=== PATIENT | male | born 1965 | race Caucasian/White ===

== ENCOUNTER 2016-12-10 16:21 | Emergency (ER) | payer BC, OTHER ==
[~2016-12-10] VITALS: Ht 172.7 cm; Wt 93.9 kg
[~2016-12-10 16:21] MED LIST: ALL180 PO; ASC400 PO; CLX20 PO; DRV100 PO; DVN80 PO; FLNIN NAE; GLC5 PO; GLC500 PO; METO25TA56 PO; NAPR-1169 PO; PRLSR20 PO; RANI300T2 PO
[2016-12-10 16:25] VITALS: TEMP 36.9; Ht 172.7 cm; Wt 93.9 kg
[2016-12-10] MEDS ORDERED: OXYCODONE HCL IR 5 MG TAB (IMMEDIATE RELEASE) PO STA (16:46)
[2016-12-10] MEDS ORDERED: IBUPROFEN 600 MG TAB PO STA (16:46)
[2016-12-10] MEDS ORDERED: INSU1.2I SC (16:53)
[2016-12-10] MEDS ORDERED: VALS320T2 PO (16:53)
[2016-12-10] MEDS ORDERED: PRED20TA PO (16:53)
[2016-12-10] MEDS ORDERED: OMEP40CA PO (16:53)
--- NOTE | 2016-12-10 17:35 | DIAGNOSTIC IMAGING REPORT ---
RIGHT RIBS UNILATERAL WITH PA CHEST CLINICAL HISTORY: Right rib pain status post trauma COMPARISON STUDY: Chest x-ray dated 04/10/2015, rib series dated 12/16/2009 FINDINGS: The erect chest reveals postsurgical changes within the cervical spine. There is no focal pulmonary consolidation. There is no pneumothorax. There is a right 10th rib fracture which appears old. No acute fractures are visualized. IMPRESSION: 1. No evidence of pneumothorax 2. No evidence of focal pulmonary consolidation 3. Old right 10th rib fracture 4. No acute fractures are visualized. Electronically signed by: Chente Tran M.D. 12/10/2016 5:33 PM Dictated Date/Time: 12/10/2016 5:30 PM
--- NOTE | 2016-12-10 17:48 | EMERGENCY ROOM VISIT NOTE ---
ED Visit Note First contact with patient: 16:31 CHIEF COMPLAINT: Right rib injury 2 hours ago HISTORY OF PRESENT ILLNESS: Patient is a 51-year-old white male who presents the emergency department for evaluation of anterior and posterior right rib pain after a mechanical fall a couple of hours ago. He was at work and slipped on the floor of the barn, when he fell, he landed flat on his back, but his right back landed over a slightly raised edge on the floor. He describes feeling a popping sensation when he landed. He states that it knocked the wind out of him, and he had to lay there for a few moments until he could get up. He was able to get up and noted pain in the right back over the ribs. It is generally worse with movement. He is able to take a full deep breath and does not really report any significant pain with coughing or deep breathing. He denies feeling short of breath. No cough or hemoptysis. He has urinated since the incident and did not note any gross blood. He is now also beginning to experience some pressure in the right anterior ribs as well. He did not strike his head or lose consciousness. He rates his discomfort a 6/10. He did not take any medications prior to coming to the emergency department. He does report a remote history of right rib fractures. REVIEW OF SYSTEMS: Review of systems as per HPI. All other systems reviewed were negative. At least 6 systems reviewed. PMH: Electronic medical records are reviewed and summarized as above/below. See Problem List. SOCIAL HISTORY: Patient lives at home. . Employed. Former smoker. PHYSICAL EXAM: Vital Signs: Reviewed Nurse's notes. GENERAL : Patient is an uncomfortable-appearing 51-year-old white male who is awake and alert and seated in the chair at the bedside. Neck: The neck is supple and there is no pain to palpation over the posterior cervical spine and no obvious step-offs or deformities. There is no JVD or tracheal deviation. Chest: There are no signs of deformities, contusions or abrasions to the anterior or posterior chest wall. There is no obvious crepitus or paradoxical chest rise. He does have some reproducible tenderness to palpation in the posterior right ribs, as well as in the anterior inferior ribs in the midclavicular line. Heart: Regular rate, and regular rhythm. Lungs: Breath sounds equal and clear to auscultation without wheezes, rales, or rhonchi heard. Abdomen: Soft, completely nontender, nondistended, with good bowel sounds. There is no sign of trauma such as contusions, abrasions or penetrations. There are no palpable pulsatile masses or hepatosplenomegaly. There is no guarding, rigidity, or rebound noted. Back: The entire thoracic, lumbar, and sacral spine were palpated. No discomfort over the thoracic spine and lumbar spine. There are no obvious step- offs or deformities noted. There are no obvious signs of trauma such as contusions abrasions penetrations noted to the back. EMERGENCY DEPARTMENT COURSE: The patient was seen and evaluated as above. Urine sample was collected, dipped and negative for hematuria. He has reproducible anterior and posterior right rib pain. He has no hematuria to suspect renal injury or retroperitoneal bleed. He does not have any right upper quadrant pain to suspect solid organ injury. Patient was medicated with oxycodone and ibuprofen for discomfort. Chest and rib films were obtained and did not note any posttraumatic findings. Supportive care measures were discussed. Encouraged to perform deep breathing exercises. He has multiple prescriptions for pain medicine at home including hydrocodone, oxycodone and Tylenol with Codeine. Differential diagnoses included rib fracture, rib contusion, pulmonary contusion, pneumothorax, among others. The patient was discharged home with his driving. He rated his pain an 8/10 at discharge. RIGHT RIBS UNILATERAL WITH PA CHEST CLINICAL HISTORY: Right rib pain status post trauma COMPARISON STUDY: Chest x-ray dated 04/10/2015, rib series dated 12/16/2009 FINDINGS: The erect chest reveals postsurgical changes within the cervical spine. There is no focal pulmonary consolidation. There is no pneumothorax. There is a right 10th rib fracture which appears old. No acute fractures are visualized. IMPRESSION: 1. No evidence of pneumothorax 2. No evidence of focal pulmonary consolidation 3. Old right 10th rib fracture 4. No acute fractures are visualized. Problem List Medical Problems: (1) Diab Kandy Wo Compl, Type Ii Or Unspec Type, Not Uncntrld Status: Chronic (2) GERD (gastroesophageal reflux disease) Status: Chronic (3) Hypertension Nos Status: Chronic (4) Pure Hypercholesterolem Status: Chronic Surgical Problems: (1) S/p bilateral carpal tunnel release Status: Resolved (2) S/P cervical spinal fusion Status: Resolved (3) S/P rotator cuff repair Status: Resolved (4) S/P sinus surgery Status: Resolved Current/Historical Medications Scheduled Insulin Glargine (Toujeo Solostar), 70 UNITS SC BID Omeprazole (Prilosec), 40 MG PO DAILY Prednisone (Prednisone), 20 MG PO EVERY 3 DAYS Valsartan/Hctz (Diovan Hct 320MG/25MG), 1 TAB PO DAILY Allergies Coded Allergies: No Known Allergies (Unverified , 12/16/09) Vital Signs Date Time Temp Pulse Resp B/P Pulse Ox O2 Delivery O2 Flow Rate FiO2 12/10/16 17:55 91 16 125/89 99 12/10/16 16:25 36.9 98 20 127/89 97 Room Air Medications Administered Medications (Trade) Dose Ordered Sig/Will Route Start Time Stop Time Status Last Admin Dose Admin Ibuprofen (Motrin Tab) 600 mg NOW STAT PO 12/10/16 16:46 12/10/16 16:47 DC 12/10/16 16:58 600 MG Oxycodone HCl (Roxicodone Immediate Rel Tab) 10 mg NOW STAT PO 12/10/16 16:46 12/10/16 16:47 DC 12/10/16 16:58 10 MG Departure Information Impression Primary Impression: Rib pain on right side Additional Impressions: Fall Work related injury Referrals Ej Donnelly PA-C (PCP) Patient Instructions My [facility] Additional Instructions DO NOT drive, drink alcohol, operate machinery, or perform dangerous activities today. You were given medications in the ER that can affect your ability to safely function or operate a vehicle. Ibuprofen(Motrin, Advil) may be used for fever or pain. Use 600mg every six hours as needed. Take with food. Avoid using more than 2400mg in a 24 hour period. Do not use 2400mg per day for more than three consecutive days without physician direction. Prolonged inappropriate use can lead to stomach upset or ulcers. (AND/OR) Acetaminophen(Tylenol) may be used for fever or pain. Use 1000mg every six hours as needed. Avoid using more than 3000mg in a 24 hour period. Use your prescription pain medication at home as prescribed if needed for the pain. Apply ice to ribs for swelling and pain. Do deep breathing and coughing exercises as instructed. Limit activities until ribs heal. Follow-up with your workers compensation physician if you do not feel the your symptoms are improving in the next 7-10 days. Problem Qualifiers Additional Impressions: Fall Encounter type: initial encounter Qualified Codes: W19.XXXA - Unspecified fall, initial encounter
[2016-12-10 17:55] VITALS: BP 125/89; PULSE 91; O2SAT 99
== END 2016-12-10 17:56 | disposition home or self-care (01) ==
LOC: C.EDB 16:22 → C.EDD 17:56
DX: R07.81 Pleurodynia (principal); W01.0XXA Fall on same level from slipping, tripping and stumbling without subsequent striking against object, initial encounter; Y99.0 Civilian activity done for income or pay; Z87.891 Personal history of nicotine dependence; E11.9 Type 2 diabetes mellitus without complications; K21.9 Gastro-esophageal reflux disease without esophagitis; I10 Essential (primary) hypertension; E78.00 Pure hypercholesterolemia, unspecified

== ENCOUNTER 2017-10-13 07:37 | Emergency (ER) | payer BC, OTHER ==
[~2017-10-13] VITALS: Ht 172.7 cm; Wt 97.6 kg
[~2017-10-13 07:37] MED LIST changes: -ALL180 PO; -ASC400 PO; -CLX20 PO; -DRV100 PO; -DVN80 PO; -FLNIN NAE; -GLC5 PO; -GLC500 PO; +INSU1.2I SC; -METO25TA56 PO; -NAPR-1169 PO; +OMEP40CA PO; +PRED20TA PO; -PRLSR20 PO; -RANI300T2 PO; +VALS320T2 PO
[2017-10-13 07:42] VITALS: TEMP 37; Ht 172.7 cm; Wt 97.6 kg
[2017-10-13 07:52] VITALS: O2SAT 93
[2017-10-13 08:09] LABS: BASO % 0.4 %; BASO ABS # 0.02 K/uL (0-0.2); COMPLETE YES; EOS % 6.4 %; IG% 0.4 %; LYMPH % 31.7 %; LYMPH ABS # 1.44 K/uL (1.2-3.4); MEAN CELL VOLUME 88.2 fL (80-100); MEAN CORPUSCULAR HEMOGLOBIN 32.4 pg (25-34); MEAN CORPUSCULAR HGB CONC 36.7 g/dl (32-36); MEAN PLATELET VOLUME 10.1 fL (7.4-10.4); MONO % 7.7 %; NEUT % 53.4 %; PLATELET COUNT 159 K/uL (130-400); WHITE BLOOD COUNT 4.54 K/uL (4.8-10.8)
[2017-10-13] MEDS ORDERED: MAGN400T6 PO ×2 (08:14)
[2017-10-13] MEDS ORDERED: CZR50 PO (08:14)
[2017-10-13] MEDS ORDERED: NEBI10TA2 PO (08:14)
[2017-10-13 08:21] LABS: ALT/SGPT 83 U/L (12-78); BLOOD UREA NITROGEN 17 mg/dl (7-18); BUN/CREATININE RATIO 14.7 (10-20); CALCIUM 9.4 mg/dl (8.5-10.1); CARBON DIOXIDE 27 mmol/L (21-32); CHLORIDE 103 mmol/L (98-107); CREATININE 1.14 mg/dl (0.60-1.40); GLUCOSE 209 mg/dl (70-99); POTASSIUM 3.7 mmol/L (3.5-5.1); SODIUM 138 mmol/L (136-145)
--- NOTE | 2017-10-13 08:25 | DIAGNOSTIC IMAGING REPORT ---
CT OF THE HEAD WITHOUT CONTRAST CLINICAL HISTORY: Sinusitis. Hypertension. COMPARISON STUDY: No previous studies for comparison. CT DOSE: 537.48 mGy.cm TECHNIQUE: Helical axial images of the head were obtained without IV contrast. Automated exposure control was utilized for the study. A dose lowering technique was utilized adhering to the principles of ALARA. FINDINGS: No acute intracranial hemorrhage, midline shift or mass effect is present. Ventricular system is unremarkable. Basilar cisterns are patent. There are no extra-axial collections. Garcia-white differentiation is maintained. There are no findings to suggest acute dural sinus thrombosis or acute territorial infarct. Mastoid air cells are clear. Extensive mucosal thickening is noted within visualized portions of the ethmoid sinuses. There is mild mucosal thickening within the sphenoid sinuses. Frontal sinuses demonstrate minimal mucosal thickening. Maxillary sinuses are not imaged on this exam. IMPRESSION: 1. No acute intracranial findings. 2. Extensive mucosal thickening within visualized portions of the ethmoid sinuses with mild mucosal thickening of the sphenoid sinuses. Maxillary sinuses not imaged on this exam. Electronically signed by: Tien Simental M.D. 10/13/2017 8:23 AM Dictated Date/Time: 10/13/2017 8:20 AM
--- NOTE | 2017-10-13 08:27 | DIAGNOSTIC IMAGING REPORT ---
CHEST ONE VIEW PORTABLE CLINICAL HISTORY: Severe hypertension. COMPARISON STUDY: Chest radiograph and right rib series December 10, 2016. FINDINGS: No pneumothorax or pleural effusion is present. A 1.9 cm nodular density within the mid to lower right lung is noted. Cardiomediastinal silhouette is normal. Pulmonary vascularity is normal. IMPRESSION: 1. No acute cardiopulmonary findings. 2. 1.9 cm nodular density within the mid to lower right lung. This likely reflects summation artifact with pulmonary vessels and ribs. Follow-up PA and shallow oblique radiographs of the chest are recommended. Electronically signed by: Tien Simental M.D. 10/13/2017 8:26 AM Dictated Date/Time: 10/13/2017 8:23 AM
[2017-10-13 08:32] LABS: ALKALINE PHOSPHATASE 77 U/L (45-117); AST/SGOT 38 U/L (15-37); CKMB/CK RATIO 2.2 (0-3.0)
[2017-10-13] MEDS ORDERED: SODIUM CHLORIDE 0.9% 500ML 500 ML IV STA (08:37)
--- NOTE | 2017-10-13 08:39 | EMERGENCY ROOM VISIT NOTE ---
History Report prepared by Sarah: Sun Gonzáles Under the Supervision of: Dr. Harry Salgado M.D. First contact with patient: 07:48 Chief Complaint: HYPERTENSION Stated Complaint: ELEVATED BP History of Present Illness The patient is a 52 year old male who presents to the Emergency Room with complaints of persistent high blood pressure for the past three days. He states that his blood pressure has been acting up for the last three days, expressing that it has been about 170/100 for three days. 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 He takes daily Diovan for his hypertension and states he took it this morning about 3 hours PIPELINE OPERATOR. He reports taking Meloxicam for plantar fascitis for about a month. He notes stopping the medication 4 days ago. Patient feels pressure and "spacey" in his head along with sinus congestion and mucus discharge. He denies recent cardiac problems, blood thinners, and abdominal pain. He denies taking any medication for the sinus congestion. He has been on a high salt diet due to the . Source of History: patient Onset: 3 days PIPELINE OPERATOR Position: other (global) Timing: other (persistent) Associated Symptoms: + headache, No abdominal pain Review of Systems See HPI for pertinent positives & negatives. A total of 10 systems reviewed and were otherwise negative. Past Medical & Surgical Medical Problems: (1) Diab Kandy Wo Compl, Type Ii Or Unspec Type, Not Uncntrld (2) GERD (gastroesophageal reflux disease) (3) Hypertension Nos (4) Pure Hypercholesterolem Surgical Problems: (1) S/p bilateral carpal tunnel release (2) S/P cervical spinal fusion (3) S/P rotator cuff repair (4) S/P sinus surgery Social History Smoking Status: Never Smoker Current/Historical Medications Scheduled Amoxicillin & Pot Clavulanate (Augmentin 875-125 mg), 1 TAB PO BID Insulin Glargine (Toujeo Solostar), 70 UNITS SC BID Losartan Potassium (Losartan Potassium), 100 MG PO DAILY Magnesium Oxide (Mag-Ox), 800 MG PO QAM Magnesium Oxide (Mag-Ox), 400 MG PO QPM Nebivolol Hcl (Bystolic), 10 MG PO QAM Omeprazole (Prilosec), 40 MG PO DAILY Allergies Coded Allergies: No Known Allergies (Unverified , 1/28/10) Physical Exam Vital Signs Date Time Temp Pulse Resp B/P (MAP) Pulse Ox O2 Delivery O2 Flow Rate FiO2 10/13/17 10:30 67 18 141/96 98 Room Air 10/13/17 09:35 65 18 170/102 98 Room Air 10/13/17 09:30 80 16 202/108 98 Room Air 10/13/17 08:30 66 18 142/93 95 Room Air 10/13/17 08:20 68 18 176/107 98 Room Air 10/13/17 07:54 85 10/13/17 07:52 93 Room Air 10/13/17 07:42 37.0 82 18 186/112 93 Room Air Physical Exam GENERAL: Patient is a healthy-appearing well-nourished 52 year old male. HEAD: Normocephalic atraumatic EYES: Ocular movements intact pupils equal and react to light OROPHARYNX mucous membranes are moist no exudates present no erythema or edema present NECK: Supple no nuchal rigidity CHEST: Good equal expansion LUNGS: Clear and equal to auscultation CARDIAC: Normal S1 and S2 ABDOMEN: Soft nontender no guarding BACK: No CVA tenderness EXTREMITIES: No pain upon palpation normal muscle strength in all groups no clubbing cyanosis or edema NEURO: Patient is following commands and answering questions appropriately. Alert and oriented x3 Cranial Nerves 2-12 grossly intact Medical Decision & Procedures ER Provider Diagnostic Interpretation: Radiology results as stated below per my review and radiologist interpretation: CHEST-PA,LAT AND OBLIQUE VIEWS CLINICAL HISTORY: Abnormal portable chest radiograph. COMPARISON STUDY: Chest radiograph August 11, 2015 and October 13, 2017. FINDINGS: No lung nodules are identified by radiography. The possible right lung nodule shown on prior exam performed earlier today was artifactual and related to summation artifact. Cardiomediastinal silhouette is normal. Pulmonary vascularity is normal. IMPRESSION: No pulmonary nodules identified. The possible right lung nodule prior exam was artifactual. Electronically signed by: Tien Simental M.D. 10/13/2017 9:26 AM CHEST ONE VIEW PORTABLE CLINICAL HISTORY: Severe hypertension. COMPARISON STUDY: Chest radiograph and right rib series December 10, 2016. FINDINGS: No pneumothorax or pleural effusion is present. A 1.9 cm nodular density within the mid to lower right lung is noted. Cardiomediastinal silhouette is normal. Pulmonary vascularity is normal. IMPRESSION: 1. No acute cardiopulmonary findings. 2. 1.9 cm nodular density within the mid to lower right lung. This likely reflects summation artifact with pulmonary vessels and ribs. Follow-up PA and shallow oblique radiographs of the chest are recommended. Electronically signed by: Tien Simental M.D. 10/13/2017 8:[address] OF THE HEAD WITHOUT CONTRAST CLINICAL HISTORY: Sinusitis. Hypertension. COMPARISON STUDY: No previous studies for comparison. CT DOSE: 537.48 mGy.cm TECHNIQUE: Helical axial images of the head were obtained without IV contrast. Automated exposure control was utilized for the study. A dose lowering technique was utilized adhering to the principles of ALARA. FINDINGS: No acute intracranial hemorrhage, midline shift or mass effect is present. Ventricular system is unremarkable. Basilar cisterns are patent. There are no extra-axial collections. Garcia-white differentiation is maintained. There are no findings to suggest acute dural sinus thrombosis or acute territorial infarct. Mastoid air cells are clear. Extensive mucosal thickening is noted within visualized portions of the ethmoid sinuses. There is mild mucosal thickening within the sphenoid sinuses. Frontal sinuses demonstrate minimal mucosal thickening. Maxillary sinuses are not imaged on this exam. IMPRESSION: 1. No acute intracranial findings. 2. Extensive mucosal thickening within visualized portions of the ethmoid sinuses with mild mucosal thickening of the sphenoid sinuses. Maxillary sinuses not imaged on this exam. Electronically signed by: Tien Simental M.D. 10/13/2017 8:23 AM Laboratory Results 10/13/17 07:54 Red Blood Count 5.10, Mean Corpuscular Volume 88.2, Mean Corpuscular Hemoglobin 32.4, Mean Corpuscular Hemoglobin Concent 36.7, Mean Platelet Volume 10.1, Neutrophils (%) (Auto) 53.4, Lymphocytes (%) (Auto) 31.7, Monocytes (%) (Auto) 7.7, Eosinophils (%) (Auto) 6.4, Basophils (%) (Auto) 0.4, Neutrophils # (Auto) 2.42, Lymphocytes # (Auto) 1.44, Monocytes # (Auto) 0.35, Eosinophils # (Auto) 0.29, Basophils # (Auto) 0.02 10/13/17 07:54 Test 10/13/17 07:54 10/13/17 08:30 White Blood Count 4.54 K/uL (4.8-10.8) Red Blood Count 5.10 M/uL (4.7-6.1) Hemoglobin 16.5 g/dL (14.0-18.0) Hematocrit 45.0 % (42-52) Mean Corpuscular Volume 88.2 fL (80-100) Mean Corpuscular Hemoglobin 32.4 pg (25-34) Mean Corpuscular Hemoglobin Concent 36.7 g/dl (32-36) Platelet Count 159 K/uL (130-400) Mean Platelet Volume 10.1 fL (7.4-10.4) Neutrophils (%) (Auto) 53.4 % Lymphocytes (%) (Auto) 31.7 % Monocytes (%) (Auto) 7.7 % Eosinophils (%) (Auto) 6.4 % Basophils (%) (Auto) 0.4 % Neutrophils # (Auto) 2.42 K/uL (1.4-6.5) Lymphocytes # (Auto) 1.44 K/uL (1.2-3.4) Monocytes # (Auto) 0.35 K/uL (0.11-0.59) Eosinophils # (Auto) 0.29 K/uL (0-0.5) Basophils # (Auto) 0.02 K/uL (0-0.2) RDW Standard Deviation 40.6 fL (36.4-46.3) RDW Coefficient of Variation 12.7 % (11.5-14.5) Immature Granulocyte % (Auto) 0.4 % Immature Granulocyte # (Auto) 0.02 K/uL (0.00-0.02) Prothrombin Time 11.0 SECONDS (9.0-12.0) Prothromb Time International Ratio 1.0 (0.9-1.1) Activated Partial Thromboplast Time 26.8 SECONDS (21.0-31.0) Partial Thromboplastin Ratio 1.0 Anion Gap 8.0 mmol/L (3-11) Est Creatinine Clear Calc Drug Dose 83.9 ml/min Estimated GFR () 84.0 Estimated GFR (Non- 72.5 BUN/Creatinine Ratio 14.7 (10-20) Calcium Level 9.4 mg/dl (8.5-10.1) Total Bilirubin 0.7 mg/dl (0.2-1) Direct Bilirubin 0.2 mg/dl (0-0.2) Aspartate Amino Transf (AST/SGOT) 38 U/L (15-37) Alanine Aminotransferase (ALT/SGPT) 83 U/L (12-78) Alkaline Phosphatase 77 U/L (45-117) Total Creatine Kinase 512 U/L (39-308) Creatine Kinase MB 11.2 ng/ml (0.5-3.6) Creatine Kinase MB Ratio 2.2 (0-3.0) Troponin I < 0.015 ng/ml (0-0.045) Total Protein 8.1 gm/dl (6.4-8.2) Albumin 4.3 gm/dl (3.4-5.0) Lipase 206 U/L (73-393) Thyroid Stimulating Hormone (TSH) 5.230 uIu/ml (0.300-4.500) Free Thyroxine 1.00 ng/dl (0.80-1.60) Urine Color YELLOW Urine Appearance CLEAR (CLEAR) Urine pH 6.0 (4.5-7.5) Urine Specific [place] 1.017 (1.000-1.030) Urine Protein 2+ (NEG) Urine Glucose (UA) TRACE (NEG) Urine Ketones NEG (NEG) Urine Occult Blood NEG (NEG) Urine Nitrite NEG (NEG) Urine Bilirubin NEG (NEG) Urine Urobilinogen NEG (NEG) Urine Leukocyte Esterase NEG (NEG) Urine WBC (Auto) 1-5 /hpf (0-5) Urine RBC (Auto) 0-4 /hpf (0-4) Urine Hyaline Casts (Auto) 0 /lpf (0-5) Urine Epithelial Cells (Auto) 5-10 /lpf (0-5) Urine Bacteria (Auto) NEG (NEG) Labs reviewed by ED physician. Medications Administered Medications (Trade) Dose Ordered Sig/Will Route Start Time Stop Time Status Last Admin Dose Admin Sodium Chloride 500 ml @ 999 mls/hr Q31M STAT IV 10/13/17 08:37 10/13/17 09:07 DC 10/13/17 08:45 999 MLS/HR Amoxicillin/ Clavulanate Potassium (Augmentin Tab) 875 mg ONE ONCE PO 10/13/17 08:45 10/13/17 08:46 DC 10/13/17 09:27 875 MG Sodium Chloride ([place] Nasal [place]) 2 sprays NOW STAT NA 10/13/17 08:40 10/13/17 08:41 DC 10/13/17 09:27 2 SPRAYS Potassium Chloride (Marjorie Ciel Elix) 30 meq NOW STAT PO 10/13/17 09:09 10/13/17 09:10 DC 10/13/17 09:27 30 MEQ ECG Indication: other (HTN) Rate (beats per minute): 79 Rhythm: sinus rhythm Findings: PVC (Occasional), no acute ischemic change ED Course 0748: Past medical records reviewed. The patient was evaluated in room A3. A complete history and physical examination was performed. 0837: Sodium Chloride 500 mL IV 0840: [place] Nasal [place] 2 sprays NA 0845: Amoxicillin 875 mg PO 0909: Potassium Chloride 30 meq PO 0858: I reassessed the patient at this time. He is feeling better and resting comfortably. 0950: I reevaluated the patient. He is feeling well and resting comfortably. I discussed his results and discharge instructions and he verbalized complete understanding and agreement. Medical Decision Prior records/ancillary studies reviewed regarding the history above. Triage Nursing notes reviewed. The patient's history was concerning for hypertension. Differential diagnosis: Etiologies such as benign hypertension, hypertensive emergency, cardiovascular pathology, pheochromocytoma, electrolyte abnormality, renal disease, organ damage, as well as others were entertained. This is a 52-year-old male who presents emergency department complaining of sinusitis-like symptoms as well as an elevation in his blood pressure. I will note that the patient's blood pressure fell without me doing anything. He was started on Augmentin for sinusitis and given nasal sprays. I suspect that the patient has several factors playing into his blood pressure 1 being anxiety 2 being his sinusitis, 3 being his hypokalemia. Regardless the blood pressure fell without any intervention. Based on these findings I felt that the patient can be safely discharged home for follow-up with his primary care physician. I will place him on antibiotics. Patient was in agreement with the treatment plan. Medication Reconcilliation Current Medication List: was personally reviewed by me Blood Pressure Screening Patient's blood pressure: Elevated blood pressure Blood pressure disposition: Referred to PCP Impression Primary Impression: Hypertension Additional Impression: Sinusitis Scribe Attestation The scribe's documentation has been prepared under my direction and personally reviewed by me in its entirety. I confirm that the note above accurately reflects all work, treatment, procedures, and medical decision making performed by me. Departure Information Dispostion Home / Self-Care Prescriptions Amoxicillin & Pot Clavulanate (Augmentin 875-125 mg) 1 Tab Tab 1 TAB PO BID for 10 Days, #20 TAB Prov: Harry Salgado MD 10/13/17 Referrals Ej Donnelly PA-C (PCP) Patient Instructions ED Sinusitis Abx Tx, Hypertension Control, Hypertension Dc, My [facility], Sinusitis Acute, Sinusitis Causes, Sinusitis Prevent, Sinusitis Self Care Additional Instructions Follow up with Dr Fischer's office for sinusitis You were found to have an elevated blood pressure today (>120 sytolic or >90 diastolic). Per medicare guidelines, you need to follow up with this blood pressure screening with your Primary Care Physician (PCP). For a new PCP call [phone]. You have been examined and treated today on an emergency basis only. This is not a substitute for, or an effort to provide, complete comprehensive medical care. It is impossible to recognize and treat all injuries or illnesses in a single emergency department visit. It is therefore important that you follow up closely with Dr Donnelly. Call as soon as possible for an appointment. Thank you for your time and consideration. I look forward to speaking with you again soon. Please don't hesitate to call us if you have any questions. Problem Qualifiers Primary Impression: Hypertension Hypertension type: unspecified Qualified Codes: I10 - Essential (primary) hypertension Additional Impression: Sinusitis Sinusitis location: unspecified location Chronicity: unspecified Qualified Codes: J32.9 - Chronic sinusitis, unspecified
[2017-10-13] MEDS ORDERED: SODIUM CHLORIDE 0.65% NA SOLN 45 ML (OCEAN) STA (08:40)
[2017-10-13 08:45] LABS: URINE APPEARANCE CLEAR (CLEAR); URINE BILIRUBIN NEG (NEG); URINE COLOR YELLOW; URINE NITRITE NEG (NEG); URINE SPECIFIC GRAVITY 1.017 (1.000-1.030); UROBILINOGEN NEG (NEG)
[2017-10-13] MEDS ORDERED: AMOXICILLIN/CLAVULANATE TAB 875 MG TAB PO ONE (08:45)
[2017-10-13 08:49] LABS: MANUAL MICROSCOPIC REQUIRED? NO; REVIEW REQ? NO
[2017-10-13] MEDS ORDERED: POTASSIUM CHLORIDE 20 MEQ/15 ML UDC PO STA (09:09)
--- NOTE | 2017-10-13 09:27 | DIAGNOSTIC IMAGING REPORT ---
CHEST-PA,LAT AND OBLIQUE VIEWS CLINICAL HISTORY: Abnormal portable chest radiograph. COMPARISON STUDY: Chest radiograph August 11, 2015 and October 13, 2017. FINDINGS: No lung nodules are identified by radiography. The possible right lung nodule shown on prior exam performed earlier today was artifactual and related to summation artifact. Cardiomediastinal silhouette is normal. Pulmonary vascularity is normal. IMPRESSION: No pulmonary nodules identified. The possible right lung nodule prior exam was artifactual. Electronically signed by: Tien Simental M.D. 10/13/2017 9:26 AM Dictated Date/Time: 10/13/2017 9:25 AM
[2017-10-13] MEDS ORDERED: AMOX875T PO (10:02)
[2017-10-13 10:30] VITALS: BP 141/96; PULSE 67; O2SAT 98
== END 2017-10-13 10:49 | disposition home or self-care (01) ==
LOC: C.EDB 07:38 → C.EDA 10:49
DX: I10 Essential (primary) hypertension (principal); J32.9 Chronic sinusitis, unspecified; E11.9 Type 2 diabetes mellitus without complications; K21.9 Gastro-esophageal reflux disease without esophagitis; Z98.1 Arthrodesis status; Z98.890 Other specified postprocedural states; Z79.4 Long term (current) use of insulin; Z79.899 Other long term (current) drug therapy

== ENCOUNTER 2020-04-23 14:48 | Inpatient (IN) ==
--- NOTE | 2020-04-23 16:04 | Emergency Department Note ---
Impression & Plan Cellulitis ED Provider Note NAME: JENNIFER JOSEPH AGE: 55 SEX: M ARRIVES VIA: Walk-In INFORMANT: [Patient] ED PROVIDER(S): Camilo Gonzalez MD CHIEF COMPLAINT: Arm infection PLAN: Disposition: Admitted Condition: [Good] MEDICAL DECISION MAKING: The patient presented to the emergency department with worsening right arm infection. He has been on maximal outpatient antibiotic therapy. He had some fluctuance in the area of the right olecranon bursa. I did aspirate this for a culture. About 10 cc of cloudy fluid was obtained. The patient has most of his right arm involved. I do not suspect necrotizing fasciitis. The patient has no pain. There is no joint related issues to support just a septic joint. He was given daptomycin and IV Zosyn. Given his diabetes and significant worsening of the infection he needs to be treated in the hospital. He does have a leukocytosis on CBC. His chemistry panel was unremarkable. I discussed the case with Dr. Rodriguez of internal medicine. The patient was evaluated in the ER and admitted for further treatment. Triage Nursing notes reviewed and agree them. Vital Signs: reviewed and remarkable for [no significant abnormalities] Differential diagnosis: Etiologies such as septic bursitis, cellulitis, abscess, MRSA infection, dermatitis, drug eruption, necrotizing fasciitis, DVT as well as others were entertained. ER treatment provided: Zosyn Daptomycin Diagnostics interpreted by me: Laboratory studies: Leukocytosis on CBC. As above. Deferred imaging. Consultation(s): Internal medicine HPI: The patient is a 55 year old ute who presents to the Emergency Room with complaints of right arm infection. This started 4 days ago and is worsening. The patient also notes the following associated symptoms, redness, swelling, fevers. The patient saw his PCP on the second day and started on antibiotics, bactrim and given rocephin IM. Yesterday he had his elbow I&D'd and placed on augmentin. Was also given rocephin again. Saw PCP today due to significant increased swelling and was directed to the ER for antibiotics. Pt denies LOC, headache, diaphoresis, visual changes, neck pain, chest pain, breathing difficulties, nausea, vomiting, abdominal pain, back pain, diarrhea, numbness, weakness, lymphadenopathy, or other complaints. ROS: See above HPI for pertinent positives & negatives. A total of [10] systems reviewed and were otherwise negative. PAST MEDICAL HISTORY:[See Below] DM PAST SURGICAL HISTORY:[See Below] FAMILY HISTORY:[See Below] SOCIAL HISTORY:[See Below]No tobacco or ETOH HOME MEDICATIONS:[See Below] ALLERGIES:[See Below] VITALS:[See Below] PHYSICAL EXAMINATION: GENERAL: Awake, alert, well-appearing, in no distress HENT: Normocephalic, atraumatic. Oropharynx unremarkable. EYES: Normal conjunctiva. Sclera non-icteric. NECK: Inspection normal. Non-tender. Supple. No nuchal rigidity. FROM. No masses. RESPIRATORY: Clear to auscultation. No wheezes. No rales. Normal respiratory effort. CARDIAC: Normal rate. Normal rhythm. No murmurs. No rubs. Extremities warm and well perfused. Pulses equal. No JVD. GI: Soft, non-distended. No tenderness to palpation. No rebound or guarding. No masses. RECTAL: Deferred. MUSCULOSKELETAL:Swelling and edema to mid bicep distally into right hand. Draining wound on the right elbow. No definite joint warmth or erythema. NEURO: Normal sensorium. No sensory or motor deficits noted. SKIN: Right arm cellulitis as noted in MS section. No other rash or jaundice noted. ED COURSE: [Critical Care:] [None] Camilo Gonzalez MD Past Med/Surg History Medical History Allergic rhinitis Diabetes mellitus type 2, uncontrolled GERD (gastroesophageal reflux disease) HTN (hypertension), benign Hyperlipidemia Osteoarthritis Surgical History History of bone marrow biopsy History of fusion of cervical spine History of sinus surgery Family History Other Family history non-contributory Social History Preferred Language: Kazakh Communication Ability: Effective Voip Network Engineer Required: No Beliefs That Will Affect Care: None marital status: Current Living Situation: Spouse current occupational status: employed current occupation: Works as a cow breeder Feels Safe at Home: Yes Safety Concerns: Feels Safe At This Time Smoking Status: Former smoker Age Quit Using Tobacco: 25 ; Hx Alcohol Use: No Hx Substance Use: No Allergies Allergies Allergy/AdvReac Type Severity Reaction Status Date / Time No Known Allergies Unverified 04/23/20 16:21 Home Meds Home Medications Medication Instructions Recorded Confirmed amoxicillin-pot clavulanate 1 tab PO BID 04/23/20 04/23/20 aspirin [Aspirin Low Dose] 81 mg PO DAILY 04/23/20 04/23/20 atorvastatin 20 mg PO PM 04/23/20 04/23/20 cetirizine [Zyrtec] 10 mg PO DAILY 04/23/20 04/23/20 fluticasone propionate [Flonase 1 spray INTRANASAL BID 04/23/20 04/23/20 Allergy Relief] ibuprofen 800 mg PO BID 04/23/20 04/23/20 insulin glargine [Basaglar KwikPen 80 unit SUBCUT BID 04/23/20 04/23/20 U-100 Insulin] losartan 100 mg PO DAILY 04/23/20 04/23/20 omeprazole 40 mg PO DAILY 04/23/20 04/23/20 sulfamethoxazole-trimethoprim 1 tab PO BID 04/23/20 04/23/20 triamterene-hydrochlorothiazid 1 cap PO DAILY 04/23/20 04/23/20 [Dyazide] Results & Data (ED) Vital Signs Vital Signs - 24 hr 04/23/20 15:01 04/23/20 16:50 04/23/20 18:00 Temperature 36.7 C Temperature Source Oral Pulse Rate 79 Pulse Rate [Radial] 87 81 Pulse Rhythm Regular Pulse Rhythm [Radial] Regular Regular Pulse Strength Normal Pulse Strength [Radial] Normal Normal Respiratory Rate 16 18 16 Respiratory Effort / Characteristics Non-Labored Spontaneous Non-Labored Spontaneous Non-Labored Spontaneous Respiratory Depth Normal Normal Normal Respiratory Pattern Regular Regular Regular Blood Pressure 137/88 Blood Pressure [Left Arm] 138/94 145/71 H Blood Pressure Mean 104 Blood Pressure Mean [Left Arm] 108 95 Blood Pressure Position Sitting Pulse Oximetry 98 97 97 Oxygen Delivery Method Room Air Room Air Room Air Sepsis Recent Fever Within 48 Hours Yes Sepsis New/Unexplained Change in Mental Status No Sepsis Action Taken by Nursing No Action Required Laboratory Data Result diagrams: 04/23/20 16:30 04/23/20 16:30 Lab Results 06/05/20 06/05/20 Range/Units 16:30 16:30 WBC 11.67 H (4.8-10.8) K/uL RBC 4.62 L (4.7-6.1) M/uL Hgb 14.5 (14.0-18.0) g/dL Hct 41.1 L (42-52) % MCV 89.0 (80-100) fL MCH 31.4 (25-34) pg MCHC 35.3 (32-36) g/dL RDW Std Deviation 42.1 (36.4-46.3) fL RDW Coeff of Rosario 13.1 (11.5-14.5) % Plt Count 173 (130-400) K/uL MPV 10.4 (7.4-10.4) fL Immature Gran % (Auto) 0.3 % Neut % (Auto) 73.9 % Lymph % (Auto) 16.8 % Stephens % (Auto) 7.4 % Eos % (Auto) 1.5 % Baso % (Auto) 0.1 % Immature Gran # (Auto) 0.04 H (0.00-0.02) K/uL Neut # (Auto) 8.63 H (1.4-6.5) K/uL Lymph # (Auto) 1.96 (1.2-3.4) K/uL Stephens # (Auto) 0.86 H (0.11-0.59) K/uL Eos # (Auto) 0.17 (0-0.5) K/uL Baso # (Auto) 0.01 (0-0.2) K/uL Sodium 137 (136-145) mmol/L Potassium 3.6 (3.5-5.1) mmol/L Chloride 104 (98-107) mmol/L Carbon Dioxide 27 (21-32) mmol/L Anion Gap 6.0 (3-11) BUN 32 H (7-18) mg/dl Creatinine 1.61 H (0.6-1.4) mg/dl Est Cr Clr Drug Dosing 56.6 ml/min Est GFR ( Amer) 54.2 Est GFR (Non-Af Amer) 46.8 BUN/Creatinine Ratio 19.8 (10-20) Glucose 145 H (70-99) mg/dl Calcium 9.1 (8.5-10.1) mg/dl Administered Medications Fluticasone Propionate (Flonase) 1 sprays JOVANNI BID [facility], 1928–1983 Stop: 05/23/20 20:59 Last Admin: 04/23/20 22:02 Dose: 1 sprays Documented by: [id number] Piperacillin Sod/Tazobactam (Sod 3.375 gm/ Dextrose) 115 mls @ 28.75 mls/hr IV Q8H [facility], 1928–1983; Protocol Stop: 04/30/20 21:59 Last Admin: 04/23/20 22:02 Dose: 28.8 mls/hr Documented by: [id number] Sodium Chloride (Nss 1000ml) 1,000 mls @ 80 mls/hr IV .[id number] ABDIAZIZ Stop: 05/23/20 22:14 Last Admin: 04/23/20 22:32 Dose: 80 mls/hr Documented by: [id number] Insulin Aspart (Novolog Flexpen) 0 units SC Q6 ABDIAZIZ Stop: 05/23/20 21:59 Last Admin: 04/23/20 21:49 Dose: Not Given Documented by: [id number] Cosigned by: [id number] Discontinued Medications Daptomycin 275 mg/ Syringe 5.5 mls @ 2.75 mls/min IV NOW ONE; Protocol Stop: 04/23/20 16:16 Last Admin: 04/23/20 17:27 Dose: 2.75 mls/min Documented by: [id number] Piperacillin Sod/Tazobactam Sod (Zosyn) 4.5 gm in 120 mls @ 240 mls/hr IV NOW ONE Stop: 04/23/20 16:44 Last Infusion: 04/23/20 17:25 Dose: 0 mls/hr Documented by: [id number] Admin: 04/23/20 16:50 Dose: 240 mls/hr Documented by: [id number] Sodium Chloride (Nss 1000ml) 1,000 mls @ 125 mls/hr IV .Q8H STA Stop: 04/24/20 01:38 Last Infusion: 04/23/20 22:26 Dose: 0 mls/hr Documented by: [id number] Admin: 04/23/20 19:24 Dose: 125 mls/hr Documented by: [id number] Insulin Glargine (Lantus) 80 units SC ONE STA Stop: 04/23/20 22:26 Last Admin: 04/23/20 22:40 Dose: 80 units Documented by: [id number] Cosigned by: [id number] Discharge Plan Visit Data *Final* Discharge Date/Time: 04/23/20 19:56 Chief Complaint: Swelling/Edema to Extremity Stated Complaint: SWELLING IN R ARM ED Provider: Camilo Gonzalez Discharge Problem: Cellulitis Patient Disposition: Admitted As Inpatient Discharge Instructions Interventions: ED Discharge Assessment Last Done: 04/23/20 19:56
[2020-04-23] MEDS ORDERED: PIPERACILL/TAZOBAC CONSULT ACTIVE PRN ×2 (16:15→20:19)
[2020-04-23] MEDS ORDERED: PIPERACILLIN/TAZOBACTAM 4.5 GM/120 ML BAG IV ONE (16:15)
[2020-04-23] MEDS ORDERED: DAPTOMYCIN CONSULT ACTIVE PRN ×2 (16:15→20:19)
[2020-04-23] MEDS ORDERED: DAPTOmycin 275 MG in SYRINGE 0 ML IV ONE (16:15)
[2020-04-23 16:57] LABS: Basophils # (auto) 0.01 K/uL (0-0.2); Basophils % (auto) 0.1 %; Eosinophils # (auto) 0.17 K/uL (0-0.5); Eosinophils % (auto) 1.5 %; Hematocrit (blood only) 41.1 % (42-52); Hemoglobin 14.5 g/dL (14.0-18.0); Immature Granulocytes # (auto) 0.04 K/uL (0.00-0.02); Immature Granulocytes % (auto) 0.3 %; Lymphocytes # (auto) 1.96 K/uL (1.2-3.4); Lymphocytes % (auto) 16.8 %; Mean Corpuscular Hemoglobin 31.4 pg (25-34); Mean Corpuscular Hgb Conc 35.3 g/dL (32-36); Mean Platelet Volume 10.4 fL (7.4-10.4); Monocytes # (auto) 0.86 K/uL (0.11-0.59); Monocytes % (auto) 7.4 %; Neutrophils # (auto) 8.63 K/uL (1.4-6.5); Neutrophils % (auto) 73.9 %; Platelet Count 173 K/uL (130-400); RDW Coefficient of Variation 13.1 % (11.5-14.5); RDW Standard Deviation 42.1 fL (36.4-46.3); Red Blood Count 4.62 M/uL (4.7-6.1); White Blood Count 11.67 K/uL (4.8-10.8)
[2020-04-23 17:18] LABS: BUN Creatinine Ratio 19.8 (10-20); Calcium 9.1 mg/dl (8.5-10.1); Creatinine Clr Calc Pharmacy 56.6 ml/min; Est GFR (African American) 54.2; Est GFR (Non-African American) 46.8; Potassium 3.6 mmol/L (3.5-5.1)
[2020-04-23] MEDS ORDERED: SODIUM CHLORIDE 0.9% 1000ML 1,000 ML IV STA (17:39)
--- NOTE | 2020-04-23 19:05 | History & Physical Report ---
Date of Service April 23, 2020 Assessment & Plan (1) Septic bursitis of elbow: This patient is a 55-year-old male with a history of uncontrolled DM 2, HTN, GERD, hyperlipidemia, allergic rhinitis, and osteoarthritis, who presents with a septic right olecranon bursitis with right upper extremity cellulitis that failed outpatient treatment with Bactrim, IM Rocephin, and Augmentin over the last 4 days. He had 10 mL's of purulent fluid aspirated from the abscess in the ER, but the previous incision and drainage performed in his PCPs office from the day prior to admission has closed off. -Admit to medical/surgical floor on observation -Follow wound cultures, blood cultures -Follow CBC -Start on IV Zosyn for gram-negative coverage to include Pseudomonas given that he is an uncontrolled diabetic; will also continue IV daptomycin to cover in case of MRSA -Check MRSA nasal swab -Consult orthopedic surgery to see about incision and drainage/washout -Will make n.p.o. after midnight in case they want to take him to the operating room tomorrow -Continue gentle IV fluids with normal saline at 75 mL's per hour -Needs good control of his blood sugars -Does not seem to be in much pain but could use Tylenol as needed for pain We will get a preoperative ECG in the morning, although he can easily achieve at least 4 METS without any chest pain or shortness of breath and as long as his renal function remains stable or improves, he is at average perioperative cardiovascular risk to undergo an orthopedic intermediate risk surgery and should therefore proceed with surgical washout if felt necessary by orthopedic surgery. (2) Cellulitis: -As above (3) Diabetes mellitus type 2, uncontrolled: No records in our system, but he thinks his last hemoglobin A1c was around 8% He is on high doses of insulin at home and reports his morning fasting blood sugar is usually in the 180s -We will continue his home insulin glargine 80 units for tonight and then decrease to 40 units for tomorrow morning while he is n.p.o. in case of surgery -If he ends up not having surgery tomorrow, would recommend increasing back to his usual insulin glargine 80 units SQ twice daily -NovoLog sliding scale before meals and at bedtime -Diabetic diet -Check hemoglobin A1c in the morning (4) HTN (hypertension), benign: -Blood pressures are elevated here -Creatinine is elevated to 1.6 over his baseline from 3 years ago-unclear if this is an acute kidney injury or his baseline as I have no further previous or more recent lab values -We will hold losartan and Dyazide for now -Giving IV fluids through the night -Follow BMP in the morning -If blood pressures become significantly elevated or he becomes symptomatic, could treat with IV hydralazine (5) Elevated serum creatinine: As noted above -Follow BMP in the morning -Giving IV fluids -Holding losartan and Dyazide (6) GERD (gastroesophageal reflux disease): -Continue PPI (7) Hyperlipidemia: -Holding statin while on IV daptomycin (8) Allergic rhinitis: Continue home cetirizine, Flonase (9) Osteoarthritis: -Would recommend against NSAID use with either acute kidney injury or if he ends up having CKD -Tylenol as needed for pain (10) DVT prophylaxis: SCDs Avoid heparin/Lovenox for now in case has surgery tomorrow Okay to continue aspirin for orthopedic surgery Disposition-admit on observation, but may end up needing more than 1 night stay in the hospital due to significant infection and potential need for surgery History of Present Illness Chief Complaint: Arm infection Primary Care Provider: Ej Donnelly This patient is a 55-year-old male with a history of uncontrolled diabetes mellitus type 2, HTN, GERD, hyperlipidemia, seasonal environmental allergies, osteoarthritis, and generalized muscle cramps, who presents to the ER after failing outpatient antibiotic therapy for a right olecranon septic bursitis with cellulitis of the right upper extremity. He reports he noticed redness of the elbow about 4 days ago. He saw his PCP on the second day and was prescribed Bactrim and given a one-time dose of IM Rocephin in the office. The erythema continued to spread and he returned to his PCPs office yesterday and had an incision and drainage of an abscess of the olecranon bursa and was given another dose of IM Rocephin. His Bactrim was then switched to Augmentin. Today, he noted that the redness had spread all the way up to his armpit and down through his hand and cause swelling in the hand. He denies any fevers or chills. He reports he has had a history of cellulitis in the past, but has never been told he had MRSA or Pseudomonas. In the ER, he was found to have appreciable fluctuance of the elbow and had a needle aspiration which easily returned 10 mL of purulent fluid which was sent for culture. He was afebrile, had a mild leukocytosis of 11, with mild tachycardia. Blood cultures were drawn as well. His creatinine was also noted to be 1.6 which is an increase compared to baseline in our system from 2017 when his creatinine was 1.1. He will be admitted on observation for a right olecranon septic bursitis with extensive cellulitis that failed outpatient therapy. Although the recommendation is for observation, he will likely need to be here for more than 2 midnights. Allergies Allergy/AdvReac Type Severity Reaction Status Date / Time No Known Allergies Unverified 04/23/20 16:21 Home Medications Home Medications Medication Instructions Recorded Confirmed Type amoxicillin-pot clavulanate 1 tab PO BID 04/23/20 04/23/20 History aspirin [Aspirin Low Dose] 81 mg PO DAILY 04/23/20 04/23/20 History atorvastatin 20 mg PO PM 04/23/20 04/23/20 History cetirizine [Zyrtec] 10 mg PO DAILY 04/23/20 04/23/20 History fluticasone propionate [Flonase 1 spray INTRANASAL BID 04/23/20 04/23/20 History Allergy Relief] ibuprofen 800 mg PO BID 04/23/20 04/23/20 History insulin glargine [Basaglar KwikPen 80 unit SUBCUT BID 04/23/20 04/23/20 History U-100 Insulin] losartan 100 mg PO DAILY 04/23/20 04/23/20 History omeprazole 40 mg PO DAILY 04/23/20 04/23/20 History sulfamethoxazole-trimethoprim 1 tab PO BID 04/23/20 04/23/20 History triamterene-hydrochlorothiazid 1 cap PO DAILY 04/23/20 04/23/20 History [Dyazide] Past Med/Surg History Medical History Allergic rhinitis Diabetes mellitus type 2, uncontrolled GERD (gastroesophageal reflux disease) HTN (hypertension), benign Hyperlipidemia Osteoarthritis Surgical History History of bone marrow biopsy History of fusion of cervical spine History of sinus surgery Family History Other Family history non-contributory Social History Preferred Language: Bengali Communication Ability: Effective Senior Engineering Team Leader Required: No Beliefs That Will Affect Care: None marital status: Current Living Situation: Spouse current occupational status: employed current occupation: Works as a cow breeder Feels Safe at Home: Yes Safety Concerns: Feels Safe At This Time Smoking Status: Former smoker Age Quit Using Tobacco: 25 ; Hx Alcohol Use: No Hx Substance Use: No Review of Systems Review of Systems: All systems reviewed & are unremarkable except as noted in HPI & below Denies chest pain or shortness of breath, no abdominal pain, no nausea or vomiting, no diarrhea or constipation. Denies any urinary problems. He reports that he is quite active and he can easily go up and down a flight of stairs without any chest pains or shortness of breath. No history of previous cardiac or pulmonary issues. Physical Exam Constitutional: WD/WN, vitals as above Eyes: PERRL, conjunctivae normal, anicteric sclerae ENMT: external ear and nose normal, oropharynx normal Neck: trachea midline, no thyromegaly Respiratory: normal respiratory effort, lungs clear to auscultation Cardiovascular: RRR, no murmur, no edema Chest (Breasts): Chest: normal inspection of chest Gastrointestinal (Abdomen): normal bowel sounds, soft, nontender, no hepatosplenomegaly Musculoskeletal: Extremities: no cyanosis and no clubbing Right upper extremity with fairly significant nonpitting edema from the hand to the mid upper arm, with large area of fluctuance over the right olecranon bursa. Erythema spreads to the medial biceps and all the way down to the dorsal hand. The entire arm is warm to the touch mostly around the elbow region. I do not appreciate any right axillary lymphadenopathy on examination, there is no crepitus or streaking of erythema He has 2+ radial pulse and sensation intact in the right hand Skin: no rashes, warm and dry (Erythema of the right upper extremity as above) Neurologic: moves all extremities and awake; no focal motor deficits Psychiatric: A+Ox3, euthymic affect Lymphatic: no lymphedema Results & Data Results & Data ([facility]) Vital Signs (Past 12 Hours) Vital Signs Temp Pulse Pulse Resp BP BP Pulse Ox 04/23/20 18:00 81 16 145/71 H 97 04/23/20 16:50 87 18 138/94 97 04/23/20 15:01 36.7 C 79 16 137/88 98 Laboratory Results 04/23/20 04/23/20 04/23/20 Range/Units Unknown 21:06 16:30 WBC (4.8-10.8) K/uL RBC (4.7-6.1) M/uL Hgb (14.0-18.0) g/dL Hct (42-52) % MCV (80-100) fL MCH (25-34) pg MCHC (32-36) g/dL RDW Std Deviation (36.4-46.3) fL RDW Coeff of Rosario (11.5-14.5) % Plt Count (130-400) K/uL MPV (7.4-10.4) fL Immature Gran % (Auto) % Neut % (Auto) % Lymph % (Auto) % Pratt % (Auto) % Eos % (Auto) % Baso % (Auto) % Immature Gran # (Auto) (0.00-0.02) K/uL Neut # (Auto) (1.4-6.5) K/uL Lymph # (Auto) (1.2-3.4) K/uL Pratt # (Auto) (0.11-0.59) K/uL Eos # (Auto) (0-0.5) K/uL Baso # (Auto) (0-0.2) K/uL Sodium 137 (136-145) mmol/L Potassium 3.6 (3.5-5.1) mmol/L Chloride 104 (98-107) mmol/L Carbon Dioxide 27 (21-32) mmol/L Anion Gap 6.0 (3-11) BUN 32 H (7-18) mg/dl Creatinine 1.61 H (0.6-1.4) mg/dl Est Cr Clr Drug Dosing 56.6 ml/min Est GFR ( Amer) 54.2 Est GFR (Non-Af Amer) 46.8 BUN/Creatinine Ratio 19.8 (10-20) Glucose 145 H (70-99) mg/dl POC Glucose 136 H (70-99) mg/dl Calcium 9.1 (8.5-10.1) mg/dl Nasal Screen MRSA (PCR) Negative (Negative) 04/23/20 Range/Units 16:30 WBC 11.67 H (4.8-10.8) K/uL RBC 4.62 L (4.7-6.1) M/uL Hgb 14.5 (14.0-18.0) g/dL Hct 41.1 L (42-52) % MCV 89.0 (80-100) fL MCH 31.4 (25-34) pg MCHC 35.3 (32-36) g/dL RDW Std Deviation 42.1 (36.4-46.3) fL RDW Coeff of Rosario 13.1 (11.5-14.5) % Plt Count 173 (130-400) K/uL MPV 10.4 (7.4-10.4) fL Immature Gran % (Auto) 0.3 % Neut % (Auto) 73.9 % Lymph % (Auto) 16.8 % Pratt % (Auto) 7.4 % Eos % (Auto) 1.5 % Baso % (Auto) 0.1 % Immature Gran # (Auto) 0.04 H (0.00-0.02) K/uL Neut # (Auto) 8.63 H (1.4-6.5) K/uL Lymph # (Auto) 1.96 (1.2-3.4) K/uL Pratt # (Auto) 0.86 H (0.11-0.59) K/uL Eos # (Auto) 0.17 (0-0.5) K/uL Baso # (Auto) 0.01 (0-0.2) K/uL Sodium (136-145) mmol/L Potassium (3.5-5.1) mmol/L Chloride (98-107) mmol/L Carbon Dioxide (21-32) mmol/L Anion Gap (3-11) BUN (7-18) mg/dl Creatinine (0.6-1.4) mg/dl Est Cr Clr Drug Dosing ml/min Est GFR ( Amer) Est GFR (Non-Af Amer) BUN/Creatinine Ratio (10-20) Glucose (70-99) mg/dl POC Glucose (70-99) mg/dl Calcium (8.5-10.1) mg/dl Nasal Screen MRSA (PCR) (Negative) Diagnostic Findings No imaging studies for review Code Status & VTE Plan Code Status Full code VTE Prophylaxis Plan VTE Prophylaxis will be ordered: Yes PG Care Time/CCT Total # of Minutes Spent Total Time Spent with Patient: Total time spent is greater than 50% in coordination of care (as documented) at patient's floor/unit and/or counseling patient: Coding Level of Care Code 88978 OBS Care - Level 3 Diagnoses Septic bursitis of elbow M71.129 Cellulitis L03.90 Diabetes mellitus type 2, uncontrolled E11.65 HTN (hypertension), benign I10 Elevated serum creatinine R79.89 GERD (gastroesophageal reflux disease) K21.9 Hyperlipidemia E78.5 Allergic rhinitis J30.9 Osteoarthritis M19.90 DVT prophylaxis Z29.9
[2020-04-23] MEDS ORDERED: GLUCAGON FOR INJ 1 MG VIAL SQ PRN (20:19)
[2020-04-23] MEDS ORDERED: ACETAMINOPHEN 325 MG TAB PO PRN (20:19)
[2020-04-23] MEDS ORDERED: GLUCOSE 10 TABS/TUBE PO PRN (20:19)
[2020-04-23] MEDS ORDERED: GLUCOSE 40% GEL 15 GM TUBE PO PRN (20:19)
[2020-04-23] MEDS: INSULIN ASPART 100 UNITS/ML 3 ML PEN SC SCH (21:49)
--- NOTE | 2020-04-23 21:51 | Communication Note ---
Date of Service: April 23, 2020 Contacted by nursing that patient is receiving Lantus 80u BID, but is currently NPO. Will cut down to 40u BID while NPO with plan to increase to 80u once taking PO again.
[2020-04-23] MEDS ORDERED: INSULIN GLARGINE 100 UNIT/ML VIAL SQ SCH (22:00)
[2020-04-23] MEDS: PIPERACILLIN/TAZOBACTAM 3.375 GM in DEXTROSE 5% 100 ML IV SCH (22:02)
[2020-04-23] MEDS: FLUTICASONE PROPIONATE NA SPR 16 GM BTL NAE SCH (22:02)
[2020-04-23] MEDS ORDERED: INSULIN GLARGINE 100 UNIT/ML VIAL SC STA (22:25)
[2020-04-23] MEDS: SODIUM CHLORIDE 0.9% 1000ML 1,000 ML IV SCH (22:32)
[2020-04-23] MEDS ORDERED: HydrALAZINE HCL 20 MG/ML VIAL IV PRN (22:53)
[2020-04-24] MEDS: PIPERACILLIN/TAZOBACTAM 3.375 GM in DEXTROSE 5% 100 ML IV SCH ×3 (05:55→21:37)
[2020-04-24] MEDS: INSULIN ASPART 100 UNITS/ML 3 ML PEN SC SCH ×4 (06:12→21:43)
[2020-04-24 07:57] LABS: Basophils # (auto) 0.01 K/uL (0-0.2); Basophils % (auto) 0.1 %; Eosinophils # (auto) 0.19 K/uL (0-0.5); Eosinophils % (auto) 2.5 %; Hematocrit (blood only) 37.4 % (42-52); Immature Granulocytes # (auto) 0.01 K/uL (0.00-0.02); Immature Granulocytes % (auto) 0.1 %; Lymphocytes # (auto) 1.44 K/uL (1.2-3.4); Lymphocytes % (auto) 18.9 %; Mean Corpuscular Hemoglobin 30.7 pg (25-34); Mean Corpuscular Hgb Conc 34.8 g/dL (32-36); Mean Corpuscular Volume 88.2 fL (80-100); Mean Platelet Volume 10.5 fL (7.4-10.4); Monocytes # (auto) 0.58 K/uL (0.11-0.59); Monocytes % (auto) 7.6 %; Neutrophils % (auto) 70.8 %; Platelet Count 175 K/uL (130-400); RDW Standard Deviation 41.7 fL (36.4-46.3); Red Blood Count 4.24 M/uL (4.7-6.1); White Blood Count 7.63 K/uL (4.8-10.8)
[2020-04-24] MEDS: FLUTICASONE PROPIONATE NA SPR 16 GM BTL NAE SCH ×2 (08:02→20:38)
[2020-04-24] MEDS: INSULIN GLARGINE 100 UNIT/ML VIAL SQ SCH (08:02)
[2020-04-24] MEDS: ASPIRIN 81 MG ECTAB PO SCH ×2 (08:03→08:23)
[2020-04-24] MEDS: CETIRIZINE HCL 10 MG TABLET PO SCH (08:03)
[2020-04-24 08:10] LABS: Estimated Average Glucose 177 mg/dl; Hemoglobin A1C 7.8 % (4.5-5.6)
[2020-04-24 08:31] LABS: BUN Creatinine Ratio 18.4 (10-20); Calcium 8.7 mg/dl (8.5-10.1); Creatinine Clr Calc Pharmacy 70.6 ml/min; Est GFR (African American) 70.9; Est GFR (Non-African American) 61.1; Potassium 3.8 mmol/L (3.5-5.1)
[2020-04-24] MEDS: PANTOprazole 40 MG TAB PO SCH (09:09)
--- NOTE | 2020-04-24 10:55 | Hospitalist Progress Note ---
Date of Service April 24, 2020 Assessment & Plan (1) Septic bursitis of elbow: This patient is a 55-year-old male with a history of uncontrolled DM 2, HTN, GERD, hyperlipidemia, allergic rhinitis, and osteoarthritis, who presents with a septic right olecranon bursitis with right upper extremity cellulitis that failed outpatient treatment with Bactrim, IM Rocephin, and Augmentin over the last 4 days. He had 10 mL's of purulent fluid aspirated from the abscess in the ER, but the previous incision and drainage performed in his PCPs office from the day prior to admission has closed off. -Follow wound cultures, blood cultures -Cont IV Zosyn & daptomycin -MRSA nasal swab neg -Consult orthopedic surgery- Dr. Chandler - no surgery today, allow diet, will plan for I&D tomorrow, NPO after midnight. -Continue NSS 75 ml/hr -Needs good control of his blood sugars -Tylenol prn pain (2) Cellulitis: -As above (3) Diabetes mellitus type 2, uncontrolled: -A1C = 7.8 -Lantus reduced in half to 40 units while NPO, will place back on 80 U BID once allowed diet - Will give total of 80 U tonight since allowed HH/DM diet for dinner, and plan to be NPO again after midnight tonight. -NovoLog ISS achs (4) HTN (hypertension), benign: -Blood pressures improved overnight -Creatinine 1.6 on admission, now improved to 1.29 with fluids. - Pt reports heavy use of ibuprofen - 800mg BID or TID, discussed reducing the amount at bedside and suggested he use an alternative such as tylenol. -Hold losartan and Dyazide for now -Cont NSS while NPO -If blood pressures become significantly elevated or he becomes symptomatic, could treat with IV hydralazine (5) Elevated serum creatinine: -Follow BMP in the morning -Giving IV fluids -Holding losartan and Dyazide (6) GERD (gastroesophageal reflux disease): -Continue PPI (7) Hyperlipidemia: -Holding statin while on IV daptomycin (8) Allergic rhinitis: Continue home cetirizine, Flonase (9) Osteoarthritis: -Would recommend against NSAID use -Tylenol as needed for pain (10) DVT prophylaxis: - SCDs, cont aspirin Disposition- Change to full Admit, anticipate surgery tomorrow, NPO after midnight. From home, likely to remain in the hospital x 1-2 more days. Admission and Anticipated Discharge Date Admission Date: April 23, 2020 Subjective The patient was seen and examined this morning. Pt states he is doing well, his right arm is equally as red and swollen as it was yesterday, but states its a little bit less warm. He denies fever, chills and sweats. He has been NPO since yesterday in anticipation of surgery. Pain is well controlled. Review of Systems Review of Systems: Constitutional: No fever, sweats or chills Eyes: No diplopia, no worsening or blurred vision ENT: normal hearing, no trouble swallowing Respiratory: No cough, sputum, dyspnea at rest or on exertion Cardiovascular: No chest pain, tightness or palpitations Abdomen: No pain, nausea, vomiting, diarrhea or constipation Musculoskeletal: R elbow joint pain with movement, no calf pain, swelling Neurologic: No weakness, numbness/tingling, or balance problems Psychiatric: No anxiety or depression Skin: No rash or itch Physical Exam Physical Exam: General: awake, alert, no apparent distress Head: Normocephalic, atraumatic ENT: PERRL, EOMI, no pharyngeal exudate, mucous membranes moist Chest: Clear to auscultation, on room air, no adventitious breath sounds Cardiac: Regular rate and rhythm, no murmur, no JVD, normal peripheral pulses, good capillary refill Abdominal: NABS x 4 quadrants, soft, nontender to palpation, no rebound, guarding or tenderness Extremities: R elbow with erythema extending down and involving the fingers, up to the axillary region. + warm to touch, +fluctuant over elbow, reduced active ROM due to moderate pain. Otherwise normal inspection, no peripheral edema or erythema, calfs nontender to palpation Psych: Normal mood and affect Neuro: AAO x 3, no gross motor deficits, speech is clear, no peripheral sensory deficits Results & Data Results & Data ([facility]) Vital Signs (Past 12 Hours) Vital Signs Temp Pulse Pulse Resp BP Pulse Ox 04/24/20 07:35 36.9 C 82 18 128/73 95 04/23/20 23:00 37.3 C 92 H 20 118/71 95 PG Care Time/CCT Total # of Minutes Spent Total Time Spent with Patient: Total time spent is greater than 50% in coordination of care (as documented) at patient's floor/unit and/or counseling patient: Coding Level of Care Code 80088 Subseq Hosp Care Lvl 3 Diagnoses Septic bursitis of elbow M71.129 Cellulitis L03.90 Diabetes mellitus type 2, uncontrolled E11.65 HTN (hypertension), benign I10 Elevated serum creatinine R79.89 GERD (gastroesophageal reflux disease) K21.9 Hyperlipidemia E78.5 Allergic rhinitis J30.9 Osteoarthritis M19.90 DVT prophylaxis Z29.9
--- NOTE | 2020-04-24 12:04 | Consultation Report ---
DATE OF CONSULTATION: 04/24/2020 ORTHOPEDIC CONSULT CHIEF COMPLAINT: Right elbow erythema and swelling. SUBJECTIVE: The patient is a 55-year-old male. States he noticed increasing pain, swelling and redness about his right elbow on 04/20/2020. He went to his PCP the next day and states he had an antibiotic injection. He states it did not improve and returned to the PCP on 04/23/2020. Due to significant increase in swelling, pain and redness, the patient was sent to the [facility] ED. The patient was admitted by the Medical Service for septic olecranon bursitis and an Orthopedics consult was asked for. Of note, the patient is a poorly controlled type 2 diabetic. He is currently on IV Zosyn and daptomycin. He did have an aspiration in the ED, which is currently showing Staph aureus. PHYSICAL EXAMINATION: On exam, patient is alert and oriented male, resting in bed. He has obvious swelling and erythema about the right upper extremity. This extends from his fingertips to the proximal arm near the axilla. There is some notable fluctuance about the olecranon. The patient is able to flex and extend the elbow with some mild discomfort and tightness, but without severe pain. ASSESSMENT: A 55-year-old male with septic right elbow olecranon bursitis. PLAN: Above discussed with the patient. He may benefit from an operative I & D due to the amount of fluid remaining in the olecranon region. He states he has had no real change with the IV antibiotics since his admission at approximately 3:00 p.m. yesterday. He is currently n.p.o. I will discuss this with Dr. Chandler and he will make a decision regarding operative intervention or continuing conservative management with IV antibiotics. RIKI
[2020-04-24] MEDS: SODIUM CHLORIDE 0.9% 1000ML 1,000 ML IV SCH ×2 (12:49→23:58)
[2020-04-24] MEDS: CARBOHYDRATES FOR HYPOGLYCEMIA PO PRN (17:09)
[2020-04-24] MEDS ORDERED: Nursing to Pharmacy Communication ONE (17:15)
[2020-04-24] MEDS ORDERED: DAPTOmycin 275 MG in SYRINGE 0 ML IV SCH (19:00)
[2020-04-24] MEDS ORDERED: LANTUS PER UNIT CHARGE SQ ONE (22:00)
--- NOTE | 2020-04-24 22:17 | Electrocardiogram Report ---
Test Reason : Blood Pressure : / mmHG Vent. Rate : 075 BPM Atrial Rate : 075 BPM P-R Int : 174 ms QRS Dur : 094 ms QT Int : 370 ms P-R-T Axes : 042 019 008 degrees QTc Int : 413 ms Normal sinus rhythm Normal ECG When compared with ECG of 13-OCT-2017 07:48, Premature ventricular complexes are no longer Present Confirmed by Hola Chavira ([id number]) on 04/24/2020 10:16:58 PM Referred By: REFERRED SELF Confirmed By:Hola Chavira
[2020-04-25] MEDS: INSULIN ASPART 100 UNITS/ML 3 ML PEN SC SCH ×5 (01:28→21:49)
[2020-04-25] MEDS: PIPERACILLIN/TAZOBACTAM 3.375 GM in DEXTROSE 5% 100 ML IV SCH ×3 (06:03→21:50)
[2020-04-25 06:24] LABS: Hematocrit (blood only) 37.2 % (42-52); Hemoglobin 13.1 g/dL (14.0-18.0); Mean Corpuscular Hemoglobin 30.9 pg (25-34); Mean Corpuscular Hgb Conc 35.2 g/dL (32-36); Mean Corpuscular Volume 87.7 fL (80-100); Platelet Count 174 K/uL (130-400); RDW Coefficient of Variation 12.8 % (11.5-14.5); RDW Standard Deviation 41.3 fL (36.4-46.3); Red Blood Count 4.24 M/uL (4.7-6.1); White Blood Count 5.56 K/uL (4.8-10.8)
[2020-04-25 06:54] LABS: Est GFR (African American) 89.9; Est GFR (Non-African American) 77.5
[2020-04-25] MEDS: FLUTICASONE PROPIONATE NA SPR 16 GM BTL NAE SCH ×2 (08:45→21:39)
[2020-04-25] MEDS: INSULIN GLARGINE 100 UNIT/ML VIAL SQ SCH ×2 (08:46→21:41)
--- NOTE | 2020-04-25 09:21 | Hospitalist Progress Note ---
Date of Service April 25, 2020 Assessment & Plan (1) Septic bursitis of elbow: This patient is a 55-year-old male with a history of uncontrolled DM 2, HTN, GERD, hyperlipidemia, allergic rhinitis, and osteoarthritis, who presents with a septic right olecranon bursitis with right upper extremity cellulitis that failed outpatient treatment with Bactrim, IM Rocephin, and Augmentin over the last 4 days. He had 10 mL's of purulent fluid aspirated from the abscess in the ER, but the previous incision and drainage performed in his PCPs office from the day prior to admission has closed off. * Follow wound cultures, blood cultures --> Gram stain from 04/23 with staph aureus, pansensitive. BCx NGTD. Will discontinue Daptomycin * Cont IV Zosyn, Dapto for now, although expect Dapto could be discontinued as likely same organism. Will await cultures from OR * MRSA nasal swab neg * Consult orthopedic surgery- appreciate assistance- to go to OR this afternoon for I&D with Dr. Chandler * NPO for now * Continue IVF NSS @ 75cc/hr * Pain control (2) Cellulitis: * As above (3) Diabetes mellitus type 2, uncontrolled: * A1C = 7.8 * Lantus reduced in half to 40 units while NPO, will place back on 80 U BID once allowed diet * NovoLog ISS achs (4) HTN (hypertension), benign: * Chronic. On Losartan, Dyazide outpatient-- on hold for OR and elevated Cr (resovled) * Currently elevated at 150/83 * Hold losartan and Dyazide for now for surgery * Cont NSS while NPO * If blood pressures become significantly elevated or he becomes symptomatic, could treat with IV hydralazine (5) Elevated serum creatinine: * RESOLVED. Cr elevated on admission at 1.6 --> Given IVF. Cr 1.06 currently. * Holding losartan and Dyazide as above Of note, Pt reports heavy use of ibuprofen - 800mg BID or TID, discussed reducing the amount at bedside and suggested he use an alternative such as tylenol. (6) GERD (gastroesophageal reflux disease): * Continue protonix (7) Hyperlipidemia: * Holding statin while on IV daptomycin --> can be resumed once Dapto discontinue as above (8) Allergic rhinitis: * Continue home cetirizine, Flonase (9) Osteoarthritis: * Would recommend against NSAID use * Tylenol as needed for pain (10) DVT prophylaxis: * SCDs, cont aspirin * Chemoprophylaxis held as patient to go to OR this afternoon Disposition- OR this afternoon with Dr. Chandler. Possible discharge tomorrow pending c/s Admission and Anticipated Discharge Date Admission Date: April 24, 2020 Subjective Patient evaluated this morning. Still with some pain in right elbow but tolerable with pain medications. Denies fevers or chills, but states he did have them prior to seeing his PCP in the office before coming to the emergency room. 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 He states he is to go to the OR for I&D today and we will adjust antibiotics as needed. Associated numbness and tingling down arms into hands but he states this is at his baseline as a complications from his diabetes. Denies chest pain, shortness of breath, abdominal pain, n/v, dysuria at this time. Review of Systems Review of Systems: All systems reviewed & are unremarkable except as noted in HPI & below Physical Exam Constitutional: WD/WN, vitals as above no acute distress Eyes: PERRL, conjunctivae normal, anicteric sclerae ENMT: external ear and nose normal, oropharynx normal Neck: trachea midline, no thyromegaly Respiratory: normal respiratory effort, lungs clear to auscultation Cardiovascular: RRR, no murmur, no edema Gastrointestinal (Abdomen): normal bowel sounds, soft, nontender, no hepatosplenomegaly Musculoskeletal: no cyanosis or clubbing, extremities motor strength 5/5 Right elbow with erythema from just proximal olecranon extending down forearm and into fingers. Warm to the touch, fluctuant pocket over olecranon. Decreased ROM. Non-tender to palpation Skin: warm, dry Neurologic: patellar DTR's 2+ bilat, sensation intact Psychiatric: A+Ox3, euthymic affect Lymphatic: no cervical or axillary lymphadenopathy Results & Data Results & Data ([facility]) Vital Signs (Past 12 Hours) Vital Signs Temp Pulse Resp BP Pulse Ox 04/25/20 07:13 36.8 C 74 18 150/83 H 96 04/24/20 23:27 37.4 C 80 16 129/72 91 Laboratory Results 04/25/20 04/25/20 04/25/20 Range/Units 05:53 05:53 05:45 WBC 5.56 (4.8-10.8) K/uL RBC 4.24 L (4.7-6.1) M/uL Hgb 13.1 L (14.0-18.0) g/dL Hct 37.2 L (42-52) % MCV 87.7 (80-100) fL MCH 30.9 (25-34) pg MCHC 35.2 (32-36) g/dL RDW Std Deviation 41.3 (36.4-46.3) fL RDW Coeff of Rosario 12.8 (11.5-14.5) % Plt Count 174 (130-400) K/uL MPV 10.0 (7.4-10.4) fL Creatinine 1.06 (0.6-1.4) mg/dl Est Cr Clr Drug Dosing 86.0 ml/min Est GFR ( Amer) 89.9 Est GFR (Non-Af Amer) 77.5 POC Glucose 141 H (70-99) mg/dl 04/24/20 04/24/20 04/24/20 Range/Units 23:49 20:32 17:26 WBC (4.8-10.8) K/uL RBC (4.7-6.1) M/uL Hgb (14.0-18.0) g/dL Hct (42-52) % MCV (80-100) fL MCH (25-34) pg MCHC (32-36) g/dL RDW Std Deviation (36.4-46.3) fL RDW Coeff of Rosario (11.5-14.5) % Plt Count (130-400) K/uL MPV (7.4-10.4) fL Creatinine (0.6-1.4) mg/dl Est Cr Clr Drug Dosing ml/min Est GFR ( Amer) Est GFR (Non-Af Amer) POC Glucose 97 116 H 70 (70-99) mg/dl 04/24/20 Range/Units 17:06 WBC (4.8-10.8) K/uL RBC (4.7-6.1) M/uL Hgb (14.0-18.0) g/dL Hct (42-52) % MCV (80-100) fL MCH (25-34) pg MCHC (32-36) g/dL RDW Std Deviation (36.4-46.3) fL RDW Coeff of Rosario (11.5-14.5) % Plt Count (130-400) K/uL MPV (7.4-10.4) fL Creatinine (0.6-1.4) mg/dl Est Cr Clr Drug Dosing ml/min Est GFR ( Amer) Est GFR (Non-Af Amer) POC Glucose 69 L* (70-99) mg/dl PG Care Time/CCT Total # of Minutes Spent Total Time Spent with Patient: Total time spent is greater than 50% in co ordination of care (as documented) at patient's floor/unit and/or counseling patient: Coding Level of Care Code 59167 Subseq Hosp Care Lvl 2 Diagnoses Septic bursitis of elbow M71.129 Cellulitis L03.90 Diabetes mellitus type 2, uncontrolled E11.65 HTN (hypertension), benign I10 Elevated serum creatinine R79.89 GERD (gastroesophageal reflux disease) K21.9 Hyperlipidemia E78.5 Allergic rhinitis J30.9 Osteoarthritis M19.90 DVT prophylaxis Z29.9
[2020-04-25] MEDS ORDERED: MIDAZOLAM HCL 1 MG/ML 2ML VIAL ONE (09:23)
[2020-04-25] MEDS ORDERED: DEXAMETHASONE SOD INJ 4 MG/ML VIAL ONE (09:23)
[2020-04-25] MEDS ORDERED: PROPOFOL IV EMULSION 10 MG/ML 20 ML VIAL IV ONE (09:23)
[2020-04-25] MEDS ORDERED: LIDOCAINE HCL 2% 2 ML VIAL/AMP(20MG/ML) INFIL ONE (09:23)
[2020-04-25] MEDS ORDERED: ONDANSETRON INJ 2 MG/ML 2 ML VIAL ONE (09:23)
[2020-04-25] MEDS ORDERED: fentaNYL citrate 100 MCG/2 ML VIAL ONE (09:24)
--- NOTE | 2020-04-25 10:18 | Anesthesiology Consultation ---
Date of Service April 25, 2020 Assessment & Plan (1) Encounter for pre-operative examination: Chart Review Chart Review: Acceptable Risk for Surgery History Surgery Operation Date: 04/25/20 11:00 Proposed Procedures p Incision and Drainage Extremity - elbow - Bud Chandler DO Height/Weight Height: 5 ft 8 in Weight: 95 kg Allergies Allergy/AdvReac Type Severity Reaction Status Date / Time No Known Allergies Unverified 04/23/20 16:21 Medications Home Medications Medication Instructions Recorded Confirmed Last Taken amoxicillin-pot clavulanate 1 tab PO BID 04/23/20 04/23/20 04/23/20 aspirin [Aspirin Low Dose] 81 mg PO DAILY 04/23/20 04/23/20 04/23/20 atorvastatin 20 mg PO PM 04/23/20 04/23/20 Unknown cetirizine [Zyrtec] 10 mg PO DAILY 04/23/20 04/23/20 04/23/20 fluticasone propionate [Flonase 1 spray INTRANASAL BID 04/23/20 04/23/20 04/23/20 Allergy Relief] ibuprofen 800 mg PO BID 04/23/20 04/23/20 04/23/20 insulin glargine [Basaglar KwikPen 80 unit SUBCUT BID 04/23/20 04/23/20 04/23/20 U-100 Insulin] losartan 100 mg PO DAILY 04/23/20 04/23/20 04/23/20 omeprazole 40 mg PO DAILY 04/23/20 04/23/20 04/23/20 sulfamethoxazole-trimethoprim 1 tab PO BID 04/23/20 04/23/20 04/23/20 triamterene-hydrochlorothiazid 1 cap PO DAILY 04/23/20 04/23/20 04/23/20 [Dyazide] Active Medications Generic Name Dose Route Start Last Admin Trade Name Freq PRN Reason Stop Dose Admin Aspirin 81 mg 04/24/20 09:00 04/24/20 08:23 Ecotrin Ectab PO 05/24/20 08:59 Not Given DAILY ABDIAZIZ Cetirizine HCl 10 mg 04/24/20 09:00 04/24/20 08:03 Zyrtec PO 05/24/20 08:59 10 mg DAILY ABDIAZIZ Administration Fluticasone Propionate 1 sprays 04/23/20 21:00 04/25/20 08:45 Flonase JOVANNI 05/23/20 20:59 1 sprays BID ABDIAZIZ Administration Piperacillin Sod/Tazobactam 115 mls @ 28.75 mls/hr 04/23/20 22:00 04/25/20 09:54 Sod 3.375 gm/ Dextrose IV 04/30/20 21:59 Infused Q8H ABDIAZIZ Infusion Protocol Daptomycin 275 mg/ Syringe 5.5 mls @ 2.75 mls/min 04/24/20 19:00 04/24/20 19:10 IV 05/01/20 18:59 2.75 mls/min Q24H ABDIAZIZ Administration Protocol Sodium Chloride 1,000 mls @ 80 mls/hr 04/23/20 22:15 04/24/20 23:58 Nss 1000ml IV 05/23/20 22:14 80 mls/hr .[id number] ABDIAZIZ Administration Insulin Aspart 0 units 04/25/20 00:00 04/25/20 05:47 Novolog Flexpen SC 05/25/20 00:00 Not Given Q6 ABDIAZIZ Insulin Glargine 40 units 04/24/20 09:00 04/25/20 08:46 Lantus SQ 05/24/20 08:59 30 units BID ABDIAZIZ Administration Miscellaneous 15 - 30 gm 04/23/20 20:19 04/24/20 17:09 Carbohydrates For Hypoglycemia PO 05/23/20 20:18 30 gm UD PRN Administration Hypoglycemia Protocol Pantoprazole Sodium 40 mg 04/24/20 09:00 04/24/20 09:09 Protonix PO 05/24/20 08:59 40 mg DAILY ABDIAZIZ Administration Past Medical History Medical History Allergic rhinitis Diabetes mellitus type 2, uncontrolled GERD (gastroesophageal reflux disease) HTN (hypertension), benign Hyperlipidemia Osteoarthritis Past Family History Family History Other Family history non-contributory Past Surgical History Surgical History History of bone marrow biopsy History of fusion of cervical spine History of sinus surgery Social History Smoking Status: Former smoker Hx Alcohol Use: No Hx Substance Use: No Physical Exam Vital Signs Last Vital Signs Temp 36.8 C 04/25/20 07:13 Pulse 74 04/25/20 07:13 Resp 18 04/25/20 07:13 BP 150/83 H 04/25/20 07:13 Pulse Ox 96 04/25/20 07:13 Testing Laboratory Results 04/25/20 05:53 04/25/20 05:53 Hemoglobin A1c 7.8 % (4.5-5.6) H 04/24/20 07:14 04/23/20 16:05 Gram Stain - Final Elbow Deep Wound Culture - Preliminary Staphylococcus aureus 04/23/20 16:38 Aerobic Blood Culture - Preliminary Blood No growth in Aerobic bottle after 24 hours. Anaerobic Blood Culture - Preliminary No growth in Anaerobic bottle after 24 hours. 04/23/20 16:30 Aerobic Blood Culture - Preliminary Blood No growth in Aerobic bottle after 24 hours. Anaerobic Blood Culture - Preliminary No growth in Anaerobic bottle after 24 hours. 04/25/20 04/24/20 05:45 23:49 POC Glucose 141 H 97 Electrocardiogram Date: 04/24/20 Findings: + NSR @ (17)
[2020-04-25] MEDS ORDERED: BACITRACIN INJ 50,000 UNIT VIAL ONE (10:51)
--- NOTE | 2020-04-25 10:52 | History & Physical Bridge Note ---
Date of Service April 25, 2020 History & Physical Bridge Note I have examined the patient, reviewed the History & Physical and in the interval since the performance of the History & Physical I have noted the following changes of clinical significance: Will require resection right septic olecranon bursa in OR.
[2020-04-25] MEDS ORDERED: BUPIVACAINE 0.5 % 5 MG/1 ML MPF 30ML VIAL ONE (11:01)
[2020-04-25] MEDS ORDERED: HYDROmorphone INJ 1 MG/ML SYRINGE IV PRN (12:34)
[2020-04-25] MEDS ORDERED: LABETALOL HCL IV 5 MG/ML 20ML IV PRN (12:34)
[2020-04-25] MEDS ORDERED: ATROPINE SULFATE 0.1 MG/ML 10ML SYR IV PRN (12:34)
[2020-04-25] MEDS ORDERED: ONDANSETRON INJ 2 MG/ML 2 ML VIAL IV PRN (12:34)
--- NOTE | 2020-04-25 12:35 | Operative Report (OR) ---
DATE OF OPERATION: 04/25/2020 PREOPERATIVE DIAGNOSES: 1. Right elbow septic olecranon bursitis. 2. Cellulitis, right arm. POSTOPERATIVE DIAGNOSES: 1. Right elbow septic olecranon bursitis. 2. Cellulitis, right arm. PROCEDURE: Right elbow resection of septic olecranon bursa. SURGEON: Bud Chandler DO. SHAREPOINT MANAGER: Hood Varghese PA-C who was present for patient positioning, sterile prep and drape, management of retractors and instruments. He was present through the critical portions of the case including wound closure, application of sterile dressing and transport of the patient to recovery. ANESTHESIA: General LMA with local. SPECIMENS: Aerobic, anaerobic, Gram stain from the right elbow olecranon bursa fluid and olecranon bursa sent for specimen. DRAINS: MALOU suction drain x1 and one-half inch iodoform gauze packing. COMPLICATIONS: None. BLOOD LOSS: 3 mL. PERTINENT HISTORY: This is a 55-year-old gentleman who developed a painful swelling in his right elbow over the last week or so. He attempted conservative management, intermuscular and oral antibiotics. He failed all measures, was seen in the Emergency Department, placed on IV antibiotics after he was admitted to the medicine service. Orthopedics was consulted and the patient was then scheduled for surgery as indicated due to staph aureus confirmed septic olecranon bursitis, right elbow. All potential risks, benefits, complications, alternatives, rehab potential for incomplete relief of symptoms, need for further surgery, DVT, PE, , persistent swelling, scarring, weakness, neurovascular injury, wound complications, need for further wound surgery and irrigation was discussed with the patient. The patient decided to proceed with the procedure as indicated. DESCRIPTION OF PROCEDURE: The patient was taken to the operative suite, placed supine on the operating room table. After review of consent and identification of proper operative site, the patient was anesthetized, LMA was placed. Tourniquet was then placed high on the right upper extremity over cast padding. Right upper extremity was then sterilely prepped and draped in usual fashion, elevated and tourniquet inflated to 250 mmHg. After surgical timeout was performed, sterile prep and drape was performed of the right upper extremity and then a 15 blade scalpel was then used to make an incision in a slightly curvilinear fashion avoiding the tip of the elbow olecranon process through the skin. The dermis was then incised. Nolan rakes were then placed and then tenotomy scissors was then used to carefully dissect down to the olecranon bursa. This was dissected free with tenotomy scissors. The bursa was then slightly ruptured with a 15 blade scalpel and then the fluid was then cultured, aerobic, anaerobic, Gram stain. Next, the bursa was then resected in its entirety with a 15 blade scalpel and a tenotomy scissor. The bursa was then passed off as specimen for pathology. Next, a rongeur was then used to debride the remainder of the bursa from the elbow and a pulsatile lavage 3 liters with normal saline and bacitracin was then used to cleanse the elbow until clear. Once this was completed, new top gloves were applied and a small stab incision was made with a 15 blade scalpel and the MALOU drain was then passed off the lateral aspect of the incision. There was a small puncture made by the family practitioner, which was still present on the medial flap and a one-half inch iodoform gauze was then passed at this hole. The skin was then closed in full thickness fashion using interrupted horizontal mattress 3-0 nylon sutures and then local anesthetic was injected around the incision site, 0.5% Marcaine plain. Next, a sterile compressive dressing was applied, overwrapped with an Zafar wrap. The tourniquet was released. The patient was awakened and taken to recovery in stable condition. I attest to the content of the Intraoperative Record and any orders documented therein. Any exception s are noted below.
--- NOTE | 2020-04-25 13:59 | Anesthesiology Progress Note ---
Date of Service April 25, 2020 Anesthesia Post Procedure Vital Signs Vital Signs: Temp Pulse Pulse Resp BP Pulse Ox 04/25/20 13:45 36.4 C L 64 16 144/78 H 95 04/25/20 12:55 36.2 C L 64 14 129/73 96 04/25/20 12:45 60 18 122/73 93 04/25/20 12:35 36.1 C L 68 16 117/76 97 04/25/20 07:13 36.8 C 74 18 150/83 H 96 04/24/20 23:27 37.4 C 80 16 129/72 91 04/24/20 15:31 37.2 C 74 21 118/72 94 Pain Intensity Right Elbow: Pain Intensity: 2 Transfer of Care Handoff Completed per policy Notes Mental Status: alert / awake / arousable Patient Amnestic to Procedure: Yes Nausea / Vomiting: adequately controlled Pain: adequately controlled Airway Patency, RR, SpO2: stable & adequate BP & HR: stable & adequate Hydration State: stable & adequate Anesthetic Complications: no major complications apparent
[2020-04-25] MEDS: CETIRIZINE HCL 10 MG TABLET PO SCH (14:12)
[2020-04-25] MEDS: PANTOprazole 40 MG TAB PO SCH (14:12)
[2020-04-25] MEDS ORDERED: Nursing to Pharmacy Communication ONE (15:21)
[2020-04-25] MEDS: SODIUM CHLORIDE 0.9% 1000ML 1,000 ML IV SCH (16:03)
[2020-04-26] MEDS: PIPERACILLIN/TAZOBACTAM 3.375 GM in DEXTROSE 5% 100 ML IV SCH (05:29)
[2020-04-26 05:57] LABS: Hematocrit (blood only) 35.6 % (42-52); Hemoglobin 12.5 g/dL (14.0-18.0); Mean Corpuscular Hemoglobin 30.9 pg (25-34); Mean Corpuscular Hgb Conc 35.1 g/dL (32-36); Mean Corpuscular Volume 88.1 fL (80-100); Platelet Count 188 K/uL (130-400); RDW Coefficient of Variation 12.6 % (11.5-14.5); RDW Standard Deviation 40.7 fL (36.4-46.3); Red Blood Count 4.04 M/uL (4.7-6.1); White Blood Count 6.87 K/uL (4.8-10.8)
[2020-04-26 06:37] LABS: Creatinine Clr Calc Pharmacy 83.6 ml/min; Est GFR (African American) 86.9; Est GFR (Non-African American) 74.9
[2020-04-26] MEDS: PANTOprazole 40 MG TAB PO SCH (08:49)
[2020-04-26] MEDS: CETIRIZINE HCL 10 MG TABLET PO SCH (08:49)
[2020-04-26] MEDS: ASPIRIN 81 MG ECTAB PO SCH (08:49)
[2020-04-26] MEDS: FLUTICASONE PROPIONATE NA SPR 16 GM BTL NAE SCH ×2 (08:50→21:05)
[2020-04-26] MEDS: INSULIN ASPART 100 UNITS/ML 3 ML PEN SC SCH ×4 (08:53→21:12)
[2020-04-26] MEDS: INSULIN GLARGINE 100 UNIT/ML VIAL SQ SCH ×2 (09:01→21:14)
--- NOTE | 2020-04-26 13:18 | Hospitalist Progress Note ---
Date of Service April 26, 2020 Assessment & Plan (1) Septic bursitis of elbow: Presented with a septic right olecranon bursitis with right upper extremity cellulitis that failed outpatient treatment with Bactrim, IM Rocephin, and Augmentin over the last 4 days. He had 10 mLs of purulent fluid aspirated from the abscess in the ER, but the previous incision and drainage performed in his PCPs office from the day prior to admission had closed off. - Underwent I&D with drain insertion with Dr. Chandler on 04/25 - Following culture from that procedure - Presently on Keflex QID for MSSA from prior I&D in his PCP's office - Erythema improving today. Drainage from drain is largely serous; no purulence noted. - Follow ortho recs (2) Cellulitis: As above (3) Diabetes mellitus type 2, uncontrolled: A1C was 7.8% this admission. - Continue Lantus 80 units BID - Sliding scale insulin -> Blood sugar 86 this morning, but overall in a good range after at noon. (4) HTN (hypertension), benign: Chronic. On Losartan, Dyazide outpatient. BP 150/90 today. - Held losartan and Dyazide for surgery - Will restart losartan tomorrow. (5) Elevated serum creatinine: RESOLVED. Cr elevated on admission at 1.6 --> Given IVF. Cr 1.06 currently. - Held losartan and Dyazide as above - Of note, patient reported heavy use of ibuprofen - 800mg BID or TID, discussed reducing the amount at bedside and suggested he use an alternative such as Tylenol. (6) GERD (gastroesophageal reflux disease): No report of GERD today. - Continue Protonix (7) Hyperlipidemia: Statin held during daptomycin usage. - Restart statin. (8) Allergic rhinitis: * Continue home cetirizine, Flonase (9) Osteoarthritis: - Would recommend against NSAID use - Tylenol as needed for pain (10) DVT prophylaxis: - SCDs, cont aspirin, & frequent ambulation. Admission and Anticipated Discharge Date Admission Date: April 24, 2020 Subjective Doing well today. Right hand is mildly swollen, but not red, not tender and has good sensation and warmth. No redness past bandages on right elbow. Reports no fevers/chills, chest pain, shortness of breath, abdominal pain, nausea, or vomiting. Physical Exam 2 Constitutional: WD/WN, vitals as above Eyes: EOM intact bilaterally; no conjunctival abnormality ENMT: external ear and nose normal, oropharynx normal Neck: trachea midline, no thyromegaly normal visual inspection Respiratory: normal respiratory effort, lungs clear to auscultation no respiratory distress Cardiovascular: RRR, no murmur, no edema Gastrointestinal (Abdomen): Inspection/Auscultation: abdomen normal to inspection; abdomen not distended Musculoskeletal: no cyanosis or clubbing, extremities motor strength 5/5 Extremities: + extremities abnormal to inspection (Right elbow in bandage. Drain has serous/sanguinous fluid, scant.) Skin: no rashes, warm and dry Neurologic: moves all extremities and awake Psychiatric: Orientation: alert, oriented to person and cooperative Results & Data Results & Data ([facility]) Vital Signs (Past 12 Hours) Vital Signs Temp Pulse Resp BP Pulse Ox 04/26/20 08:16 36.6 C 77 18 152/93 H 98 04/26/20 03:38 36.7 C 73 16 146/88 H 94 PG Care Time/CCT Total # of Minutes Spent Total Time Spent with Patient: Total time spent is greater than 50% in coordination of care (as documented) at patient's floor/unit and/or counseling p atient: Coding Level of Care Code 02685 Subseq Hosp Care Lvl 3 Diagnoses Septic bursitis of elbow M71.129 Cellulitis L03.90 Diabetes mellitus type 2, uncontrolled E11.65 HTN (hypertension), benign I10 Elevated serum creatinine R79.89 GERD (gastroesophageal reflux disease) K21.9 Hyperlipidemia E78.5 Allergic rhinitis J30.9 Osteoarthritis M19.90 DVT prophylaxis Z29.9
--- NOTE | 2020-04-26 13:38 | Orthopedic Progress Note ---
Date of Service April 26, 2020 Assessment & Plan (1) Septic bursitis of elbow: 55 yo male stable POD #1 s/p right elbow I&D septic olecranon bursitis, MSSA on culture 1. Med management 2. DVT prophylaxis- SCDs 3. PT/OT 4. D/C planning- will remove remainder of packing tomorrow and pt likely can be d/c'd on po abx. Will discuss with Dr Chandler to finalize plan. Admission and Anticipated Discharge Date Admission Date: April 24, 2020 Subjective Pt eating lunch, pain controlled, denies complaints Physical Exam Physical Exam: Dressing changed, hemovac d/c'd, part of packing d/c'd, new dressing applied. Notably less erythema proximal arm, less tenderness Results & Data ([facility]) Vital Signs (Past 12 Hours) Vital Signs Temp Pulse Resp BP Pulse Ox 04/26/20 08:16 36.6 C 77 18 152/93 H 98 04/26/20 03:38 36.7 C 73 16 146/88 H 94 Laboratory Results Microbiology 04/25/20 11:50 Gram Stain - Final Elbow,Right Aerobic and Anaerobic Culture - Preliminary Staphylococcus aureus 04/23/20 16:38 Aerobic Blood Culture - Preliminary Blood No growth in Aerobic bottle after 48 hours. Anaerobic Blood Culture - Preliminary No growth in Anaerobic bottle after 48 hours. 04/23/20 16:30 Aerobic Blood Culture - Preliminary Blood No growth in Aerobic bottle after 48 hours. Anaerobic Blood Culture - Preliminary No growth in Anaerobic bottle after 48 hours. 04/23/20 16:05 Gram Stain - Final Elbow Deep Wound Culture - Final Staphylococcus aureus
[2020-04-26] MEDS: cephALEXin 500 MG CAP PO SCH ×3 (14:34→21:05)
[2020-04-26] MEDS: ATORVASTATIN 20 MG TAB PO SCH (21:05)
[2020-04-27] MEDS: CARBOHYDRATES FOR HYPOGLYCEMIA PO PRN (05:05)
[2020-04-27] MEDS: cephALEXin 500 MG CAP PO SCH (08:45)
[2020-04-27] MEDS: ASPIRIN 81 MG ECTAB PO SCH (08:45)
[2020-04-27] MEDS: CETIRIZINE HCL 10 MG TABLET PO SCH (08:46)
[2020-04-27] MEDS: LOSARTAN POTASSIUM 50 MG TAB PO SCH (08:46)
[2020-04-27] MEDS: PANTOprazole 40 MG TAB PO SCH (08:46)
[2020-04-27] MEDS: FLUTICASONE PROPIONATE NA SPR 16 GM BTL NAE SCH ×2 (08:46→20:35)
[2020-04-27] MEDS: INSULIN ASPART 100 UNITS/ML 3 ML PEN SC SCH ×4 (08:47→22:11)
[2020-04-27] MEDS: INSULIN GLARGINE 100 UNIT/ML VIAL SQ SCH ×2 (08:47→22:13)
--- NOTE | 2020-04-27 12:21 | Orthopedic Progress Note ---
Date of Service April 27, 2020 Assessment & Plan (1) Septic bursitis of elbow: 55 yo male stable POD #2 s/p I&D septic right olecranon bursitis, concern for ongoing infection 1. Med management- cont IV abx, pt may need repeat washout, will make NPO and discuss with Dr Chandler 2. DVT prophylaxis- ASA, SCDs 3. PT/OT 4. D/C planning- Admission and Anticipated Discharge Date Admission Date: April 24, 2020 Subjective Pt resting in bed, denies complaints Physical Exam Physical Exam: Dressing d/c'd remainder of packing pulled, moderate purulence expressed from wound, surrounding erythema and erythema and swelling proximally, wound redressed Results & Data ([facility]) Vital Signs (Past 12 Hours) Vital Signs Temp Pulse Resp BP Pulse Ox 04/27/20 08:03 36.9 C 75 18 143/85 H 94
--- NOTE | 2020-04-27 12:41 | Hospitalist Progress Note ---
Date of Service April 27, 2020 Assessment & Plan (1) Septic bursitis of elbow: Presented with a septic right olecranon bursitis with right upper extremity cellulitis that failed outpatient treatment with Bactrim, IM Rocephin, and Augmentin over the last 4 days. He had 10 mLs of purulent fluid aspirated from the abscess in the ER, but the previous incision and drainage performed in his PCPs office from the day prior to admission had closed off. - Underwent I&D with drain insertion with Dr. Chandler on 04/25 - Cultures all growing MSSA. - Worsening erythema and continued purulence per ortho examination - Considering repeat washout today. - On cefazolin 2g Q8h; had been on orals x 1 day, but switch back to IV today given worsening. (2) Cellulitis: As above (3) Diabetes mellitus type 2, uncontrolled: A1C was 7.8% this admission. - Continue Lantus 60 units BID - Sliding scale insulin -> Blood sugar down to 52 in the AM. Given juice and responded well. (4) HTN (hypertension), benign: Chronic. On Losartan, Dyazide outpatient. BP 140/85 today. - Held losartan and Dyazide for surgery - Restarted losartan on 04/27. (5) Elevated serum creatinine: RESOLVED. Cr elevated on admission at 1.6 --> Given IVF. Cr 1.06 currently. - Held losartan and Dyazide as above - Of note, patient reported heavy use of ibuprofen - 800mg BID or TID, discussed reducing the amount at bedside and suggested he use an alternative such as Tylenol. (6) GERD (gastroesophageal reflux disease): No report of GERD today. - Continue Protonix (7) Hyperlipidemia: Statin held during daptomycin usage. - Restarted statin on 04/26. (8) Allergic rhinitis: * Continue home cetirizine, Flonase (9) Osteoarthritis: - Would recommend against NSAID use - Tylenol as needed for pain (10) DVT prophylaxis: - SCDs, cont aspirin, & frequent ambulation. Admission and Anticipated Discharge Date Admission Date: April 24, 2020 Subjective Has some swelling in the right hand and in the triceps area of the right arm. Reports no fevers/chills, chest pain, shortness of breath, abdominal pain, nausea, or vomiting. Physical Exam Constitutional: WD/WN, vitals as above Eyes: EOM intact bilaterally; no conjunctival abnormality ENMT: external ear and nose normal, oropharynx normal Neck: trachea midline, no thyromegaly normal visual inspection Respiratory: normal respiratory effort, lungs clear to auscultation no respiratory distress Cardiovascular: RRR, no murmur, no edema Gastrointestinal (Abdomen): Inspection/Auscultation: abdomen normal to inspection; abdomen not distended Musculoskeletal: no cyanosis or clubbing, extremities motor strength 5/5 Extremities: + extremities abnormal to inspection (Right elbow in bandage. Triceps with swelling.) Skin: no rashes, warm and dry Neurologic: moves all extremities and awake Psychiatric: Orientation: alert, oriented to person and cooperative Results & Data Results & Data ([facility]) Vital Signs (Past 12 Hours) Vital Signs Temp Pulse Resp BP Pulse Ox 04/27/20 08:03 36.9 C 75 18 143/85 H 94 PG Care Time/CCT Total # of Minutes Spent Total Time Spent with Patient: Total time spent is greater than 50% in budget coordinator rdination of care (as documented) at patient's floor/unit and/or counseling patient: Coding Level of Care Code 52746 Subseq Hosp Care Lvl 3 Diagnoses Septic bursitis of elbow M71.129 Cellulitis L03.90 Diabetes mellitus type 2, uncontrolled E11.65 HTN (hypertension), benign I10 Elevated serum creatinine R79.89 GERD (gastroesophageal reflux disease) K21.9 Hyperlipidemia E78.5 Allergic rhinitis J30.9 Osteoarthritis M19.90 DVT prophylaxis Z29.9
[2020-04-27] MEDS: CEFAZOLIN 2000MG 2,000 MG/15 ML SYR IV SCH ×2 (13:05→20:35)
[2020-04-27] MEDS ORDERED: Nursing to Pharmacy Communication SCH (19:30)
[2020-04-27] MEDS: ATORVASTATIN 20 MG TAB PO SCH (20:36)
[2020-04-27] MEDS: CLOTRIMAZOLE 1% CR 15 GM TUBE EXT SCH ×2 (20:36→20:52)
[2020-04-28] MEDS: CEFAZOLIN 2000MG 2,000 MG/15 ML SYR IV SCH ×3 (04:16→21:19)
[2020-04-28 05:49] LABS: Hematocrit (blood only) 36.6 % (42-52); Hemoglobin 12.4 g/dL (14.0-18.0); Mean Corpuscular Hemoglobin 30.2 pg (25-34); Mean Corpuscular Hgb Conc 33.9 g/dL (32-36); Mean Corpuscular Volume 89.3 fL (80-100); Platelet Count 205 K/uL (130-400); RDW Coefficient of Variation 12.7 % (11.5-14.5); RDW Standard Deviation 40.7 fL (36.4-46.3); White Blood Count 6.18 K/uL (4.8-10.8)
[2020-04-28 06:18] LABS: BUN Creatinine Ratio 12.4 (10-20); Creatinine Clr Calc Pharmacy 90.2 ml/min; Est GFR (African American) 95.3; Est GFR (Non-African American) 82.2; Magnesium 1.8 mg/dl (1.8-2.4); Phosphorus 3.2 mg/dl (2.5-4.9); Potassium 3.5 mmol/L (3.5-5.1)
[2020-04-28] MEDS: DEXTROSE 50% 50 ML SYRINGE IV PRN ×3 (08:48→17:30)
[2020-04-28] MEDS: INSULIN ASPART 100 UNITS/ML 3 ML PEN SC SCH ×4 (09:11→21:21)
[2020-04-28] MEDS: INSULIN GLARGINE 100 UNIT/ML VIAL SQ SCH ×2 (09:11→21:20)
[2020-04-28] MEDS: FLUTICASONE PROPIONATE NA SPR 16 GM BTL NAE SCH ×2 (09:26→21:19)
[2020-04-28] MEDS: CLOTRIMAZOLE 1% CR 15 GM TUBE EXT SCH ×2 (09:26→21:19)
[2020-04-28] MEDS: LOSARTAN POTASSIUM 50 MG TAB PO SCH (09:26)
[2020-04-28] MEDS: ASPIRIN 81 MG ECTAB PO SCH (09:26)
[2020-04-28] MEDS: PANTOprazole 40 MG TAB PO SCH (09:27)
[2020-04-28] MEDS: CETIRIZINE HCL 10 MG TABLET PO SCH (09:27)
[2020-04-28] MEDS ORDERED: Nursing to Pharmacy Communication SCH ×2 (09:45→17:45)
--- NOTE | 2020-04-28 13:56 | Hospitalist Progress Note ---
Date of Service April 28, 2020 Assessment & Plan (1) Septic bursitis of elbow: Presented with a septic right olecranon bursitis with right upper extremity cellulitis that failed outpatient treatment with Bactrim, IM Rocephin, and Augmentin over the last 4 days. He had 10 mLs of purulent fluid aspirated from the abscess in the ER, but the previous incision and drainage performed in his PCPs office from the day prior to admission had closed off. - Underwent I&D with drain insertion with Dr. Chandler on 04/25 - Cultures all growing MSSA. - On cefazolin 2g Q8h; had been on orals x 1 day, but switch back to IV on 04/27 given worsening. Discussed with ortho today. Will see him and determine need for repeat wash-out. Hopefully avoid it. If no need for surgery, can likely d/c tomorrow after another 24 hours of IV abx. Does seem to be improving mildly around the surgical site. (2) Cellulitis: As above (3) Diabetes mellitus type 2, uncontrolled: A1C was 7.8% this admission. - Continue Lantus 60 units BID - Sliding scale insulin -> Blood sugar down to 57 today since he is NPO. Morning Lantus held. Given amp of D50 with improvement. (4) HTN (hypertension), benign: Chronic. On Losartan, Dyazide outpatient. BP 115/70 today. - Held losartan and Dyazide for surgery - Restarted losartan on 04/27. (5) Elevated serum creatinine: RESOLVED. Cr elevated on admission at 1.6 --> Given IVF. Cr 1.00 currently. - Held losartan and Dyazide as above; now back on losartan. - Of note, patient reported heavy use of ibuprofen - 800mg BID or TID, discussed reducing the amount at bedside and suggested he use an alternative such as Tylenol. (6) GERD (gastroesophageal reflux disease): No report of GERD today. - Continue Protonix (7) Hyperlipidemia: Statin held during daptomycin usage. - Restarted statin on 04/26. (8) Allergic rhinitis: * Continue home cetirizine, Flonase (9) Osteoarthritis: - Would recommend against NSAID use - Tylenol as needed for pain (10) DVT prophylaxis: - SCDs, cont aspirin, & frequent ambulation. Admission and Anticipated Discharge Date Admission Date: April 24, 2020 Subjective He feels the hand and arm are improving today. Less redness, less swelling. However, elbow at incision site still seems red. Reports no fevers/chills, chest pain, shortness of breath, abdominal pain, nausea, or vomiting. Physical Exam Constitutional: WD/WN, vitals as above Eyes: EOM intact bilaterally; no conjunctival abnormality ENMT: external ear and nose normal, oropharynx normal Neck: trachea midline, no thyromegaly normal visual inspection Respiratory: normal respiratory effort, lungs clear to auscultation no respiratory distress Cardiovascular: RRR, no murmur, no edema Gastrointestinal (Abdomen): Inspection/Auscultation: abdomen normal to inspection; abdomen not distended Musculoskeletal: no cyanosis or clubbing, extremities motor strength 5/5 Extremities: + extremities abnormal to inspection (Right elbow with stitches. No purulence noted. Red. Triceps with swelling.) Skin: no rashes, warm and dry Neurologic: moves all extremities and awake Psychiatric: Orientation: alert, oriented to person and cooperative Results & Data Results & Data ([facility]) Vital Signs (Past 12 Hours) Vital Signs Temp Pulse Resp BP Pulse Ox 04/28/20 07:47 36.7 C 66 18 115/68 95 PG Care Time/CCT Total # of Minutes Spent Total Time Spent with Patient: Total time spent is greater than 50% in coordination of care (as documented) at patient's floor/unit and/or counseling patient: Coding Level of Care Code 35189 Subseq Hosp Care Lvl 3 Diagnoses Septic bursitis of elbow M71.129 Cellulitis L03.90 Diabetes mellitus type 2, uncontrolled E11.65 HTN (hypertension), benign I10 Elevated serum creatinine R79.89 GERD (gastroesophageal reflux disease) K21.9 Hyperlipidemia E78.5 Allergic rhinitis J30.9 Osteoarthritis M19.90 DVT prophylaxis Z29.9
--- NOTE | 2020-04-28 18:17 | Orthopedic Progress Note ---
Date of Service April 28, 2020 Assessment & Plan (1) Septic bursitis of elbow: 55 yo male stable POD #3 s/p I&D septic right olecranon bursitis, 1. Med management- cont IV abx for now if continue to improve and adjust to oral antibiotics 2. Trend inflammatory labs, ESR CRP CBC 3. Ice and elevation right upper extremity 4. DVT prophylaxis- ASA, SCDs 5. PT/OT 6. D/C planning- Admission and Anticipated Discharge Date Admission Date: April 24, 2020 Subjective Post Operative Progress Note Patient seen sitting up in bed, comfortable, denies complaints, pain well controlled, no acute issues. Denies F/C/N/V/SOB/CP. Review of Systems Review of Systems: All systems reviewed & are unremarkable except as noted in HPI & below Constitutional: as per Subjective / HPI Physical Exam Physical Exam: Right upper extremity is neurovascular and sensory intact grossly, incision is clean dry and intact, mild to moderate erythema with mild induration and improving, full painless range of motion of the elbow. No active drainage. Constitutional: WD/WN, vitals as above Results & Data ([facility]) Vital Signs (Past 12 Hours) Vital Signs Temp Pulse Resp BP Pulse Ox 04/28/20 14:46 37.3 C 61 16 140/77 99 04/28/20 07:47 36.7 C 66 18 115/68 95 Laboratory Results 04/28/20 04/28/20 04/28/20 Range/Units 17:50 17:24 17:20 WBC (4.8-10.8) K/uL RBC (4.7-6.1) M/uL Hgb (14.0-18.0) g/dL Hct (42-52) % MCV (80-100) fL MCH (25-34) pg MCHC (32-36) g/dL RDW Std Deviation (36.4-46.3) fL RDW Coeff of Rosario (11.5-14.5) % Plt Count (130-400) K/uL MPV (7.4-10.4) fL Sodium (136-145) mmol/L Potassium (3.5-5.1) mmol/L Chloride (98-107) mmol/L Carbon Dioxide (21-32) mmol/L Anion Gap (3-11) BUN (7-18) mg/dl Creatinine (0.6-1.4) mg/dl Est Cr Clr Drug Dosing ml/min Est GFR ( Amer) Est GFR (Non-Af Amer) BUN/Creatinine Ratio (-20) Glucose (70-99) mg/dl POC Glucose 117 H 67 L* 68 L* (70-99) mg/dl Calcium (8.5-10.1) mg/dl Phosphorus (2.5-4.9) mg/dl Magnesium (1.8-2.4) mg/dl 04/28/20 04/28/20 04/28/20 Range/Units 12:55 12:34 12:31 WBC (4.8-10.8) K/uL RBC (4.7-6.1) M/uL Hgb (14.0-18.0) g/dL Hct (42-52) % MCV (80-100) fL MCH (25-34) pg MCHC (32-36) g/dL RDW Std Deviation (36.4-46.3) fL RDW Coeff of Rosario (11.5-14.5) % Plt Count (130-400) K/uL MPV (7.4-10.4) fL Sodium (136-145) mmol/L Potassium (3.5-5.1) mmol/L Chloride (98-107) mmol/L Carbon Dioxide (21-32) mmol/L Anion Gap (3-11) BUN (7-18) mg/dl Creatinine (0.6-1.4) mg/dl Est Cr Clr Drug Dosing ml/min Est GFR ( Amer) Est GFR (Non-Af Amer) BUN/Creatinine Ratio (-20) Glucose (70-99) mg/dl POC Glucose 120 H 57 L* 71 (70-99) mg/dl Calcium (8.5-10.1) mg/dl Phosphorus (2.5-4.9) mg/dl Magnesium (1.8-2.4) mg/dl 04/28/20 04/28/20 04/28/20 Range/Units 12:29 09:04 08:42 WBC (4.8-10.8) K/uL RBC (4.7-6.1) M/uL Hgb (14.0-18.0) g/dL Hct (42-52) % MCV (80-100) fL MCH (25-34) pg MCHC (32-36) g/dL RDW Std Deviation (36.4-46.3) fL RDW Coeff of Rosario (11.5-14.5) % Plt Count (130-400) K/uL MPV (7.4-10.4) fL Sodium (136-145) mmol/L Potassium (3.5-5.1) mmol/L Chloride (98-107) mmol/L Carbon Dioxide (21-32) mmol/L Anion Gap (3-11) BUN (7-18) mg/dl Creatinine (0.6-1.4) mg/dl Est Cr Clr Drug Dosing ml/min Est GFR ( Amer) Est GFR (Non-Af Amer) BUN/Creatinine Ratio (-) Glucose (70-99) mg/dl POC Glucose 61 L* 129 H 65 L* (70-99) mg/dl Calcium (8.5-10.1) mg/dl Phosphorus (2.5-4.9) mg/dl Magnesium (1.8-2.4) mg/dl 04/28/20 04/28/20 04/28/20 Range/Units 08:39 05:39 05:39 WBC 6.18 (4.8-10.8) K/uL RBC 4.10 L (4.7-6.1) M/uL Hgb 12.4 L (14.0-18.0) g/dL Hct 36.6 L (42-52) % MCV 89.3 (80-100) fL MCH 30.2 (25-34) pg MCHC 33.9 (32-36) g/dL RDW Std Deviation 40.7 (36.4-46.3) fL RDW Coeff of Rosario 12.7 (11.5-14.5) % Plt Count 205 (130-400) K/uL MPV 9.0 (7.4-10.4) fL Sodium 143 (136-145) mmol/L Potassium 3.5 (3.5-5.1) mmol/L Chloride 110 H (98-107) mmol/L Carbon Dioxide 27 (21-32) mmol/L Anion Gap 6.0 (3-11) BUN 13 (7-18) mg/dl Creatinine 1.01 (0.6-1.4) mg/dl Est Cr Clr Drug Dosing 90.2 ml/min Est GFR ( Amer) 95.3 Est GFR (Non-Af Amer) 82.2 BUN/Creatinine Ratio 12.4 (10-20) Glucose 73 (70-99) mg/dl POC Glucose 61 L* (70-99) mg/dl Calcium 8.0 L (8.5-10.1) mg/dl Phosphorus 3.2 (2.5-4.9) mg/dl Magnesium 1.8 (1.8-2.4) mg/dl 04/27/20 04/27/20 Range/Units 22:08 18:27 WBC (4.8-10.8) K/uL RBC (4.7-6.1) M/uL Hgb (14.0-18.0) g/dL Hct (42-52) % MCV (80-100) fL MCH (25-34) pg MCHC (32-36) g/dL RDW Std Deviation (36.4-46.3) fL RDW Coeff of Rosario (11.5-14.5) % Plt Count (130-400) K/uL MPV (7.4-10.4) fL Sodium (136-145) mmol/L Potassium (3.5-5.1) mmol/L Chloride (98-107) mmol/L Carbon Dioxide (21-32) mmol/L Anion Gap (3-11) BUN (7-18) mg/dl Creatinine (0.6-1.4) mg/dl Est Cr Clr Drug Dosing ml/min Est GFR ( Amer) Est GFR (Non-Af Amer) BUN/Creatinine Ratio (10-20) Glucose (70-99) mg/dl POC Glucose 153 H 75 (70-99) mg/dl Calcium (8.5-10.1) mg/dl Phosphorus (2.5-4.9) mg/dl Magnesium (1.8-2.4) mg/dl
[2020-04-28] MEDS: ATORVASTATIN 20 MG TAB PO SCH (21:19)
[2020-04-29] MEDS: CEFAZOLIN 2000MG 2,000 MG/15 ML SYR IV SCH ×2 (05:23→13:08)
[2020-04-29 06:31] LABS: Hematocrit (blood only) 35.3 % (42-52); Hemoglobin 12.3 g/dL (14.0-18.0); Mean Corpuscular Hemoglobin 30.9 pg (25-34); Mean Corpuscular Hgb Conc 34.8 g/dL (32-36); Mean Corpuscular Volume 88.7 fL (80-100); Mean Platelet Volume 9.3 fL (7.4-10.4); Platelet Count 227 K/uL (130-400); RDW Coefficient of Variation 12.6 % (11.5-14.5); RDW Standard Deviation 40.7 fL (36.4-46.3); Red Blood Count 3.98 M/uL (4.7-6.1); White Blood Count 6.19 K/uL (4.8-10.8)
[2020-04-29 07:01] LABS: BUN Creatinine Ratio 10.8 (10-20); Calcium 8.4 mg/dl (8.5-10.1); Creatinine Clr Calc Pharmacy 79.9 ml/min; Est GFR (African American) 82.3; Magnesium 1.9 mg/dl (1.8-2.4); Potassium 3.7 mmol/L (3.5-5.1)
[2020-04-29 07:09] LABS: C Reactive Protein 3.72 mg/dl (0-0.29); Phosphorus 2.3 mg/dl (2.5-4.9)
[2020-04-29] MEDS: CLOTRIMAZOLE 1% CR 15 GM TUBE EXT SCH (08:45)
[2020-04-29] MEDS: INSULIN ASPART 100 UNITS/ML 3 ML PEN SC SCH ×3 (08:46→18:19)
[2020-04-29] MEDS: ASPIRIN 81 MG ECTAB PO SCH (08:47)
[2020-04-29] MEDS: PANTOprazole 40 MG TAB PO SCH (08:47)
[2020-04-29] MEDS: LOSARTAN POTASSIUM 50 MG TAB PO SCH (08:47)
[2020-04-29] MEDS: FLUTICASONE PROPIONATE NA SPR 16 GM BTL NAE SCH (08:47)
[2020-04-29] MEDS: CETIRIZINE HCL 10 MG TABLET PO SCH (08:47)
[2020-04-29] MEDS: INSULIN GLARGINE 100 UNIT/ML VIAL SQ SCH (08:48)
--- NOTE | 2020-04-29 13:41 | Hospitalist Progress Note ---
Date of Service April 29, 2020 Assessment & Plan (1) Septic bursitis of elbow: Presented with a septic right olecranon bursitis with right upper extremity cellulitis that failed outpatient treatment with Bactrim, IM Rocephin, and Augmentin over the last 4 days. He had 10 mLs of purulent fluid aspirated from the abscess in the ER, but the previous incision and drainage performed in his PCPs office from the day prior to admission had closed off. - Underwent I&D with drain insertion with Dr. Chandler on 04/25 - Cultures all growing MSSA. - On cefazolin 2g Q8h; had been on orals x 1 day, but switch back to IV on 04/27 given worsening. No surgical need yesterday. Site looks improved today. Awaiting evaluation by ortho, but possibly switch to PO and discharge today vs. tomorrow? (2) Cellulitis: As above (3) Diabetes mellitus type 2, uncontrolled: A1C was 7.8% this admission. - Continue Lantus 60 units BID - Sliding scale insulin -> Blood sugars low yesterday while NPO. Today have been great with largely ~110-120. (4) HTN (hypertension), benign: Chronic. On Losartan, Dyazide outpatient. BP 125/75 today. - Held losartan and Dyazide for surgery - Restarted losartan on 04/27. BPs good today. (5) Elevated serum creatinine: RESOLVED. Cr elevated on admission at 1.6 --> Given IVF. Cr 1.14 currently. - Held losartan and Dyazide as above; now back on losartan. - Of note, patient reported heavy use of ibuprofen - 800mg BID or TID, discussed reducing the amount at bedside and suggested he use an alternative such as Tylenol. (6) GERD (gastroesophageal reflux disease): No report of GERD today. - Continue Protonix (7) Hyperlipidemia: Statin held during daptomycin usage. - Restarted statin on 04/26. (8) Allergic rhinitis: * Continue home cetirizine, Flonase (9) Osteoarthritis: - Would recommend against NSAID use - Tylenol as needed for pain (10) DVT prophylaxis: - SCDs, cont aspirin, & frequent ambulation. Admission and Anticipated Discharge Date Admission Date: April 24, 2020 Subjective Feeling better today. No major concerns. Elbow is less stiff & swollen. Less redness. Hand also improving. Reports no fevers/chills, chest pain, shortness of breath, abdominal pain, nausea, or vomiting. Physical Exam Constitutional: WD/WN, vitals as above Eyes: EOM intact bilaterally; no conjunctival abnormality ENMT: external ear and nose normal, oropharynx normal Neck: trachea midline, no thyromegaly normal visual inspection Respiratory: normal respiratory effort, lungs clear to auscultation no respiratory distress Cardiovascular: RRR, no murmur, no edema Gastrointestinal (Abdomen): Inspection/Auscultation: abdomen normal to inspection; abdomen not distended Musculoskeletal: no cyanosis or clubbing, extremities motor strength 5/5 Extremities: + extremities abnormal to inspection (Right elbow with stitches. No purulence. Less red today.) Skin: no rashes, warm and dry Neurologic: moves all extremities and awake Psychiatric: Orientation: alert, oriented to person and cooperative Results & Data Results & Data ([facility]) Vital Signs (Past 12 Hours) Vital Signs Temp Pulse Resp BP Pulse Ox 04/29/20 07:32 37.3 C 79 18 126/76 93 PG Care Time/CCT Total # of Minutes Spent Total Time Spent with Patient: Total time spent is greater than 50% in coordination of care (as documented) at patient's floor/unit and/or counseling patient: Coding Level of Care Code 19321 Subseq Hosp Care Lvl 2 Diagnoses Septic bursitis of elbow M71.129 Cellulitis L03.90 Diabetes mellitus type 2, uncontrolled E11.65 HTN (hypertension), benign I10 Elevated serum creatinine R79.89 GERD (gastroesophageal reflux disease) K21.9 Hyperlipidemia E78.5 Allergic rhinitis J30.9 Osteoarthritis M19.90 DVT prophylaxis Z29.9
--- NOTE | 2020-04-29 14:38 | Orthopedic Progress Note ---
Date of Service April 29, 2020 Assessment & Plan (1) Septic bursitis of elbow: 55 yo male stable POD #4 s/p I&D septic right olecranon bursitis, Continues to improve. Saw patient with Dr. Mauro. Okay to switch to oral antibiotics and okay for discharge from an orthopedic standpoint. Will sign off at this time. F/u with Dr. Chandler 2 weeks post operatively for reevaluation. Admission and Anticipated Discharge Date Admission Date: April 24, 2020 Subjective Patient seen sitting up in bed, comfortable, denies complaints, pain well controlled, no acute issues. Denies F/C/N/V/SOB/CP. Review of Systems Review of Systems: All systems reviewed & are unremarkable except as noted in HPI & below Physical Exam Physical Exam: Incision is c/d/i, improving erythema. No drainage. Mild swelling to olecranon bursa, no fluctuance noted. Distally n/v status and sensation intact. Constitutional: well developed and well nourished; no acute distress Results & Data ([facility]) Vital Signs (Past 12 Hours) Vital Signs Temp Pulse Resp BP Pulse Ox 04/29/20 07:32 37.3 C 79 18 126/76 93
[2020-04-29] MEDS ORDERED: POT PHOSPHATE MONOBASIC W/ SOD TAB PO SCH (17:00)
--- NOTE | 2020-04-29 18:49 | Discharge Summary ---
Date of Service April 29, 2020 Admission HPI Per Admitting Provider This patient is a 55-year-old male with a history of uncontrolled diabetes mellitus type 2, HTN, GERD, hyperlipidemia, seasonal environmental allergies, osteoarthritis, and generalized muscle cramps, who presents to the ER after failing outpatient antibiotic therapy for a right olecranon septic bursitis with cellulitis of the right upper extremity. He reports he noticed redness of the elbow about 4 days ago. He saw his PCP on the second day and was prescribed Bactrim and given a one-time dose of IM Rocephin in the office. The erythema continued to spread and he returned to his PCPs office yesterday and had an incision and drainage of an abscess of the olecranon bursa and was given another dose of IM Rocephin. His Bactrim was then switched to Augmentin. Today, he noted that the redness had spread all the way up to his armpit and down through his hand and cause swelling in the hand. He denies any fevers or chills. He reports he has had a history of cellulitis in the past, but has never been told he had MRSA or Pseudomonas. In the ER, he was found to have appreciable fluctuance of the elbow and had a needle aspiration which easily returned 10 mL of purulent fluid which was sent for culture. He was afebrile, had a mild leukocytosis of 11, with mild tachycardia. Blood cultures were drawn as well. His creatinine was also noted to be 1.6 which is an increase compared to baseline in our system from 2017 when his creatinine was 1.1. He will be admitted on observation for a right olecranon septic bursitis with extensive cellulitis that failed outpatient therapy. Although the recommendation is for observation, he will likely need to be here for more than 2 midnights. Principal Diagnosis Septic bursitis with MSSA Discharge Exam Constitutional WD/WN, vitals as above Eyes EOM intact bilaterally; no conjunctival abnormality ENMT external ear and nose normal, oropharynx normal Neck trachea midline, no thyromegaly normal visual inspection Respiratory normal respiratory effort, lungs clear to auscultation no respiratory distress Cardiovascular RRR, no murmur, no edema Gastrointestinal (Abdomen) Inspection/Auscultation: abdomen normal to inspection; abdomen not distended Musculoskeletal no cyanosis or clubbing, extremities motor strength 5/5 Extremities: + extremities abnormal to inspection (Right elbow with stitches. No purulence. Less red today.) Skin no rashes, warm and dry Neurologic moves all extremities and awake Psychiatric Orientation: alert, oriented to person and cooperative Discharge Data Allergies Allergy/AdvReac Type Severity Reaction Status Date / Time No Known Allergies Unverified 04/23/20 16:21 Consultations 04/23/20 20:19 Consult Orthopedic Surgery Routine Procedures Performed Operation Date: 04/25/20 11:00 Actual Procedures p Incision and Drainage Extremity - elbow(Right) - Bud Chandler, DO Hospital Course (1) Septic bursitis of elbow: Presented with a septic right olecranon bursitis with right upper extremity cellulitis that failed outpatient treatment with Bactrim, IM Rocephin, and Augmentin over the last 4 days. He had 10 mLs of purulent fluid aspirated from the abscess in the ER, but the previous incision and drainage performed in his PCPs office from the day prior to admission had closed off. - Underwent I&D with drain insertion with Dr. Chandler on 04/25 - Cultures all growing MSSA. - On cefazolin 2g Q8h while in the hospital. -> Discharged on Keflex 500 mg PO QID x [address] see Dr[address] Chandler in the next week to be sure it is healing well. (2) Cellulitis: As above (3) Diabetes mellitus type 2, uncontrolled: A1C was 7.8% this admission. - Continue Lantus 60 units BID - Sliding scale insulin -> Blood sugars low yesterday while NPO. Today have been great with largely ~110-120. (4) HTN (hypertension), benign: Chronic. On Losartan, Dyazide outpatient. BP 125/75 today. - Held losartan and Dyazide for surgery - Restarted losartan on 04/27. BPs good today. Can restart normal home meds on discharge home. (5) Elevated serum creatinine: RESOLVED. Cr elevated on admission at 1.6 --> Given IVF. Cr 1.14 currently. - Held losartan and Dyazide as above; now back on losartan. - Of note, patient reported heavy use of ibuprofen - 800mg BID or TID, discussed reducing the amount at bedside and suggested he use an alternative such as Tylenol. (6) GERD (gastroesophageal reflux disease): No report of GERD today. - Continue Protonix (7) Hyperlipidemia: Statin held during daptomycin usage. - Restarted statin on 04/26. (8) Allergic rhinitis: * Continue home cetirizine, Flonase (9) Osteoarthritis: - Would recommend against NSAID use - Tylenol as needed for pain (10) DVT prophylaxis: - SCDs, cont aspirin, & frequent ambulation. Total Time Total Time Spent Total Time Spent (In Minutes): 35 Discharge Plan Discharge Items Patient Disposition: Home - Self-Care Reason For Visit: SEPTIC BURSITIS,CELLULITIS Discharge Diagnosis: Septic bursitis (infection in the bursa (fluid space) of the right elbow) Activity: Resume your previous activity Lifting: Wait until after follow-up appointment Non-emergency contact: Primary Care Provider and Surgeon Call non-emergency contact if: your symptoms worsen, your pain is worsening and your temperature is above 101 Follow-up/Referrals: Bud Chandler DO [Surgeon] - (Please see Dr. Chandler next week for a check- up of your elbow.) Ej Donnelly PA-C [Primary Care Provider] - Diet: Carb Consistent or DM2 and Heart Healthy Addtl Attending Provider Instructions: You were admitted for an infection in the right elbow (called septic bursitis). The infection was caused by a bug called Staph aurewaldo (or a "Staph" infection). It was not the resistant kind ("MRSA"), but it is still a pretty aggressive b acteria. Due to the extent of the infection, you had to have the elbow washed out on April 25. Even with washing the bacteria out of there, the elbow still stayed red and pretty irritated for a few days. There was some concern that you would need a second washout because of how aggressive the Staph was; however, we were able to avoid this with a few extra days of IV antibiotics. We are sending you home on oral antibiotics. The oral antibiotic is very similar to the IV one, so I do feel it will work as well. The Staph is sensitive to it as well, so we feel good about its effectiveness. You will need to take the medication 4 times per day; however, it is for a limited time, so hopefully this will be something that won't be too big a burden for a limited time. Please follow up with Dr. Chandler in his clinic next week to be sure your elbow is completely healing prior to finishing the antibiotics. If you have more redness, more pain, more swelling, or a fever, please call his office right away to be seen that day. If you cannot be seen or don't get a timely response, please come back to the hospital. The health of your arm/elbow is important and with infections, delaying care can have bad consequences. Pending Studies at Discharge: No Stand-Alone Forms: My [facility], Smoking Cessation Medications and DC Order Prescriptions: New cephalexin [Keflex] 500 mg capsule 500 mg PO Q6H 7 Days Qty: 28 RF: 0 Continued atorvastatin 20 mg Tablet 20 mg PO PM RF: 0 cetirizine [Zyrtec] 10 mg Tablet 10 mg PO DAILY RF: 0 omeprazole 40 mg capsule,delayed release(DR/EC) 40 mg PO DAILY RF: 0 aspirin [Aspirin Low Dose] 81 mg Tablet,Delayed Release (Dr/Ec) 81 mg PO DAILY RF: 0 triamterene-hydrochlorothiazid [Dyazide] 37.5-25 mg Capsule 1 cap PO DAILY RF: 0 losartan 100 mg Tablet 100 mg PO DAILY RF: 0 fluticasone propionate [Flonase Allergy Relief] 50 mcg/actuation [place],Suspension 1 spray INTRANASAL BID RF: 0 Basaglar KwikPen U-100 Insulin 100 unit/mL (3 mL) insulin pen 80 unit SUBCUT BID RF: 0 Discontinued ibuprofen 800 mg Tablet 800 mg PO BID RF: 0 sulfamethoxazole-trimethoprim 800-160 mg tablet 1 tab PO BID RF: 0 amoxicillin-pot clavulanate 875-125 mg tablet 1 tab PO BID RF: 0 Discharge Orders: Discharge Order (Routine); Ordered 04/29/20 Ordered By: Herbert Guevara/Other Patient Handouts: Diabetes Manage A1C Test Admission Data Admit Date/Time: 04/24/20 16:46 Attending Provider: Herbert Sheth Admit Provider: Estefani Larson Primary Care Provider: Ej Donnelly Other Providers: Suhas Mauro Coding Level of Care Code D/C Day Management >30 mins Diagnoses Septic bursitis of elbow M71.129 Cellulitis L03.90 Diabetes mellitus type 2, uncontrolled E11.65 HTN (hypertension), benign I10 Elevated serum creatinine R79.89 GERD (gastroesophageal reflux disease) K21.9 Hyperlipidemia E78.5 Allergic rhinitis J30.9 Osteoarthritis M19.90 DVT prophylaxis Z29.9
== END 2020-04-29 20:07 | disposition home or self-care (01) | DRG 558 ==
LOC: ED 14:48 → 2W 14:48 → SUATTDRO 19:04 → 2W 19:56 → 3N 04-24 01:52 → SUATTDRO 04-24 16:46